=== PATIENT | male | born 1950 | race Caucasian/White ===

== ENCOUNTER → 2016-05-25 | Outpatient (CLI) | payer OTHER ==
[~2016-05-25] MED LIST: ASPI81TA28 PO; ATOR-22 PO; CARV25TA PO; GLIP-172 PO; HYDR25TA4 PO; KFL/250 PO; LOSA100T65 PO; METF750T PO
[2016-05-25 13:02] LABS: ESTIMATED AVERAGE GLUCOSE 151 mg/dl; HA1C FLAG Normal (Normal)
[2016-05-25 13:09] LABS: ALT/SGPT 35 U/L (12-78); AST/SGOT 15 U/L (15-37); BLOOD UREA NITROGEN 23 mg/dl (7-18); BUN/CREATININE RATIO 14.6 (10-20); CARBON DIOXIDE 26 mmol/L (21-32); CHLORIDE 108 mmol/L (98-107); CHOLESTEROL 158 mg/dl (0-200); GLUCOSE 148 mg/dl (70-99); POTASSIUM 4.2 mmol/L (3.5-5.1); SODIUM 142 mmol/L (136-145)
[2016-05-25 13:11] LABS: ALB/GLOB RATIO 1.2 (0.9-2); ALKALINE PHOSPHATASE 87 U/L (45-117); CHOLESTEROL/HDL RATIO 4.2; HDL CHOLESTEROL 38 mg/dl; LDL CHOLESTEROL CALCULATED 78 mg/dl; TRIGLYCERIDES 212 mg/dl (0-150); VERY LOW DENSITY LIPOPROT CALC 42 mg/dl
[2016-05-25 13:31] LABS: RATIO 7.7 mcg/mg (0-30.0)
== END | disposition home or self-care (01) ==
LOC: C.LABBFT 09:25
PROVIDERS: ATTEND Internal Medicine
DX: E11.9 Type 2 diabetes mellitus without complications (principal); E78.00 Pure hypercholesterolemia, unspecified; J34.89 Other specified disorders of nose and nasal sinuses

== ENCOUNTER → 2016-05-30 | Outpatient (CLI) | payer OTHER ==
[2016-05-30 17:44] LABS: BLOOD UREA NITROGEN 23 mg/dl (7-18); BUN/CREATININE RATIO 17.3 (10-20); CALCIUM 9.6 mg/dl (8.5-10.1); CARBON DIOXIDE 29 mmol/L (21-32); CHLORIDE 106 mmol/L (98-107); GLUCOSE 132 mg/dl (70-99); SODIUM 142 mmol/L (136-145)
== END | disposition home or self-care (01) ==
LOC: C.LABBFT 13:23
PROVIDERS: ATTEND Internal Medicine
DX: I10 Essential (primary) hypertension (principal)

== ENCOUNTER 2016-08-31 16:06 | Emergency (ER) | payer OTHER ==
[~2016-08-31] VITALS: Ht 170.2 cm; Wt 72.5 kg
[2016-08-31 16:12] VITALS: TEMP 36.6; Ht 170.2 cm; Wt 72.5 kg
[2016-08-31] MEDS ORDERED: CARV25TA PO (17:31)
[2016-08-31] MEDS ORDERED: ATOR-22 PO (17:32)
[2016-08-31] MEDS ORDERED: HYDR25TA4 PO (17:32)
[2016-08-31] MEDS ORDERED: METF750T PO (17:32)
[2016-08-31] MEDS ORDERED: GLIP-172 PO (17:32)
[2016-08-31] MEDS ORDERED: ASPI81TA28 PO (17:32)
[2016-08-31] MEDS ORDERED: LOSA100T65 PO (17:32)
[2016-08-31] MEDS ORDERED: SODIUM CHLORIDE 0.9% 1000ML 1,000 ML IV STA (17:44)
[2016-08-31] MEDS ORDERED: ONDANSETRON INJ 2 MG/ML 2 ML VIAL IV STA (17:45)
--- NOTE | 2016-08-31 17:46 | EMERGENCY ROOM VISIT NOTE ---
History Report prepared by Jacque: Ken Moncada Under the Supervision of: Dr. Claude Douglas M.D. First contact with patient: 17:37 Chief Complaint: NAUSEA Stated Complaint: NAUSEA, DIZZINESS- PHYSICIAN REFERRED Nursing Triage Summary: Pt c/o diaphoretic, nausea, lightheaded/dizziness, hands cramped at 11:00. Pt was see at PCP office. "I still don't feel good". pt reports current weakness, nausea. Denies chest pain, denies SOB. Pt reports an episode of this in the past, had stress test History of Present Illness The patient is a 66 year old male who presents to the Emergency Room with complaints of an episode of lightheadedness that occurred around 1100 this morning. He said he was working in the yard, and felt fine until he was talking to his neighbor. At that time, he started to feel nauseous and lightheaded. He was soaked in sweat, and he was having abdominal pain. The patient says that it took him a while to start feeling a bit better. However, he still feels very weak. The patient adds that he has been having cramping in his legs and fingers. Currently, he says the abdominal pain is gone. Per the patient's , these kinds of symptoms have happened before, but not to this extent. The patient had a stent placement in 2004, and he takes Aspirin. Source of History: patient, spouse/significant other Onset: 1100 this morning Position: other (global - lightheadedness) Timing: other (episode) Associated Symptoms: + diaphoresis, + nausea, + abdominal pain (but denies currently), + weakness Note: Associated symptoms: Cramping in legs and fingers. Review of Systems See HPI for pertinent positives & negatives. A total of 10 systems reviewed and were otherwise negative. Past Medical & Surgical Medical Problems: (1) HLD (hyperlipidemia) (2) HTN (hypertension) Family History No pertinent family history Social History Smoking Status: Never Smoker Marital Status: Housing Status: lives with family Occupation Status: retired Current/Historical Medications Scheduled Aspirin (Aspirin Ec), 81 MG PO DAILY Atorvastatin (Lipitor), 30 MG PO HS Carvedilol (Coreg), 25 MG PO BID Glipizide (Glipizide Xl), 2.5 MG PO QAM Hydrochlorothiazide (Hctz), 25 MG PO DAILY Losartan Potassium (Cozaar), 100 MG PO DAILY Metformin Hcl (Glucophage Er), 750 MG PO DAILY Allergies Coded Allergies: No Known Allergies (Unverified , 08/31/16) Physical Exam Vital Signs Date Time Temp Pulse Resp B/P (MAP) Pulse Ox O2 Delivery O2 Flow Rate FiO2 08/31/16 21:45 76 18 138/69 95 08/31/16 20:47 78 18 149/81 94 Room Air 08/31/16 18:47 73 18 148/80 95 08/31/16 18:01 96 Room Air 08/31/16 18:01 96 Room Air 08/31/16 17:58 64 157/83 85 170/97 84 193/105 08/31/16 17:31 65 08/31/16 16:12 36.6 71 18 169/90 96 Room Air Physical Exam GENERAL: Patient is a healthy-appearing well-nourished 66 year old male. HEAD: Normocephalic atraumatic EYES: Ocular movements intact pupils equal and react to light OROPHARYNX mucous membranes are moist no exudates present no erythema or edema present NECK: Supple no nuchal rigidity CHEST: Good equal expansion LUNGS: Clear and equal to auscultation CARDIAC: Normal S1 and S2 ABDOMEN: Soft nontender no guarding BACK: No CVA tenderness EXTREMITIES: No pain upon palpation normal muscle strength in all groups no clubbing cyanosis or edema NEURO: Patient is following commands and answering questions appropriately. Alert and oriented x3 Cranial Nerves 2-12 grossly intact Medical Decision & Procedures ER Provider Diagnostic Interpretation: X-ray results as stated below per interpretation by me and the radiologist: PA CHEST RADIOGRAPH AND LEFT LATERAL DECUBITUS AND SUPINE AP RADIOGRAPHS OF THE ABDOMEN CLINICAL HISTORY: Vasovagal episode COMPARISON STUDY: Chest radiograph January 01, [address] of the abdomen and pelvis May 06, 2015. FINDINGS: The patient is rotated. This may account for widening of the right paratracheal stripe. Cardiac size is normal. There is no evidence of pulmonary edema. There is no consolidation to suggest pneumonia. Linear bilateral opacities suggest atelectasis. There is no free air. There is no evidence for a bowel obstruction. IMPRESSION: 1. No free air or evidence of bowel obstruction. 2. No acute cardiopulmonary findings. Electronically signed by: Bernard Hudson M.D. 08/31/2016 6:42 PM Dictated Date/Time: 08/31/2016 6:41 PM Laboratory Results 08/31/16 17:10 Red Blood Count 5.05, Mean Corpuscular Volume 86.3, Mean Corpuscular Hemoglobin 30.5, Mean Corpuscular Hemoglobin Concent 35.3, Mean Platelet Volume 10.0, Neutrophils (%) (Auto) 69.3, Lymphocytes (%) (Auto) 22.5, Monocytes (%) (Auto) 5.8, Eosinophils (%) (Auto) 1.8, Basophils (%) (Auto) 0.2, Neutrophils # (Auto) 5.64, Lymphocytes # (Auto) 1.83, Monocytes # (Auto) 0.47, Eosinophils # (Auto) 0.15, Basophils # (Auto) 0.02 08/31/16 17:10 Test 08/31/16 17:10 08/31/16 17:56 08/31/16 20:15 White Blood Count 8.14 K/uL (4.8-10.8) Red Blood Count 5.05 M/uL (4.7-6.1) Hemoglobin 15.4 g/dL (14.0-18.0) Hematocrit 43.6 % (42-52) Mean Corpuscular Volume 86.3 fL (80-100) Mean Corpuscular Hemoglobin 30.5 pg (25-34) Mean Corpuscular Hemoglobin Concent 35.3 g/dl (32-36) Platelet Count 187 K/uL (130-400) Mean Platelet Volume 10.0 fL (7.4-10.4) Neutrophils (%) (Auto) 69.3 % Lymphocytes (%) (Auto) 22.5 % Monocytes (%) (Auto) 5.8 % Eosinophils (%) (Auto) 1.8 % Basophils (%) (Auto) 0.2 % Neutrophils # (Auto) 5.64 K/uL (1.4-6.5) Lymphocytes # (Auto) 1.83 K/uL (1.2-3.4) Monocytes # (Auto) 0.47 K/uL (0.11-0.59) Eosinophils # (Auto) 0.15 K/uL (0-0.5) Basophils # (Auto) 0.02 K/uL (0-0.2) RDW Standard Deviation 40.5 fL (36.4-46.3) RDW Coefficient of Variation 12.8 % (11.5-14.5) Immature Granulocyte % (Auto) 0.4 % Immature Granulocyte # (Auto) 0.03 K/uL (0.00-0.02) Urine Color YELLOW Urine Appearance CLEAR (CLEAR) Urine pH 6.0 (4.5-7.5) Urine Specific [place] 1.021 (1.000-1.030) Urine Protein NEG (NEG) Urine Glucose (UA) NEG (NEG) Urine Ketones NEG (NEG) Urine Occult Blood NEG (NEG) Urine Nitrite NEG (NEG) Urine Bilirubin NEG (NEG) Urine Urobilinogen NEG (NEG) Urine Leukocyte Esterase NEG (NEG) Anion Gap 8.0 mmol/L (3-11) Est Creatinine Clear Calc Drug Dose 50.9 ml/min Estimated GFR () 65.0 Estimated GFR (Non- 56.1 BUN/Creatinine Ratio 17.4 (10-20) Calcium Level 9.9 mg/dl (8.5-10.1) Total Bilirubin 0.7 mg/dl (0.2-1) Direct Bilirubin 0.2 mg/dl (0-0.2) Aspartate Amino Transf (AST/SGOT) 26 U/L (15-37) Alanine Aminotransferase (ALT/SGPT) 38 U/L (12-78) Alkaline Phosphatase 103 U/L (45-117) Total Protein 7.9 gm/dl (6.4-8.2) Albumin 4.4 gm/dl (3.4-5.0) Thyroid Stimulating Hormone (TSH) 0.903 uIu/ml (0.300-4.500) Bedside Glucose 109 mg/dl (70-99) Total Creatine Kinase 459 U/L (39-308) Creatine Kinase MB 4.7 ng/ml (0.5-3.6) Creatine Kinase MB Ratio 1.0 (0-3.0) Troponin I < 0.015 ng/ml (0-0.045) Labs reviewed by ED physician. Medications Administered Medications (Trade) Dose Ordered Sig/Jennifer Route Start Time Stop Time Status Last Admin Dose Admin Sodium Chloride 1,000 ml @ 999 mls/hr Q1H1M STAT IV 08/31/16 17:44 08/31/16 18:44 DC 08/31/16 17:44 999 MLS/HR Ondansetron HCl (Zofran Inj) 4 mg NOW STAT IV 08/31/16 17:45 08/31/16 17:46 DC 08/31/16 18:04 4 MG Sodium Chloride 1,000 ml @ 500 mls/hr Q2H IV 08/31/16 20:15 08/31/16 22:14 DC 08/31/16 20:15 500 MLS/HR ECG Indication: nausea Rate (beats per minute): 61 Rhythm: normal sinus Findings: no acute ischemic change, no ectopy ED Course 1737: Past medical records reviewed. The patient was evaluated in room C7. A complete history and physical examination was performed. 1743: Ordered NSS 1000 ml @ 999 mls/hr IV. 1744: Ordered Zofran Inj 4 mg IV. 1904: I reevaluated and updated the patient. The patient verbally expressed understanding and agreement of the treatment plan. The patient will be evaluated for further treatment. 2009: I discussed the patient with Dr. Sadi SALGUERO confidential secretary - he will evaluate the patient for further treatment. Medical Decision Differential diagnosis: Etiologies such as cardiac ischemia, aortic dissection, pulmonary embolism, pneumonia, pneumothorax, musculoskeletal, infections, pericarditis, myocarditis , esophageal rupture, gastrointestinal, as well as others were entertained. Medication Reconciliation: I attest that I have personally reviewed the patient' s current medication list Blood Pressure Screening: Patient was found to have normal blood pressure on screening and does not require follow up. This is a 66-year-old male who presents emergency department complaining of vasovagal episode while mowing the grass today. The patient does have a history of one cardiac stent place and notes that he feels similar to when he needed his stent. IV was established, patient given normal saline bolus. The patient was found to have elevations in CK and MB functions. Based on these findings I did discuss the case with the hospitalist service. Consults Time Called: 1949 Consulting Physician: Dr. Sadi SALGUERO confidential secretary Returned Call: 2009 I discussed the patient with Dr. Sadi SALGUERO confidential secretary - he will evaluate the patient for further treatment. Impression Primary Impression: Vasovagal episode Scribe Attestation The scribe's documentation has been prepared under my direction and personally reviewed by me in its entirety. I confirm that the note above accurately reflects all work, treatment, procedures, and medical decision making performed by me. Departure Information Dispostion Being Evaluated By Hospitalist Referrals No Doctor, Assigned (PCP) Patient Instructions My [facility]
[2016-08-31 17:49] LABS: BASO % 0.2 %; BASO ABS # 0.02 K/uL (0-0.2); COMPLETE YES; EOS % 1.8 %; HEMATOCRIT 43.6 % (42-52); IG% 0.4 %; LYMPH % 22.5 %; LYMPH ABS # 1.83 K/uL (1.2-3.4); MEAN CELL VOLUME 86.3 fL (80-100); MEAN CORPUSCULAR HEMOGLOBIN 30.5 pg (25-34); MEAN CORPUSCULAR HGB CONC 35.3 g/dl (32-36); MONO % 5.8 %; NEUT % 69.3 %; PLATELET COUNT 187 K/uL (130-400); RED BLOOD COUNT 5.05 M/uL (4.7-6.1); WHITE BLOOD COUNT 8.14 K/uL (4.8-10.8)
[2016-08-31 18:01] VITALS: O2SAT 96
[2016-08-31 18:03] LABS: ALT/SGPT 38 U/L (12-78); AST/SGOT 26 U/L (15-37); BLOOD UREA NITROGEN 23 mg/dl (7-18); BUN/CREATININE RATIO 17.4 (10-20); CALCIUM 9.9 mg/dl (8.5-10.1); CARBON DIOXIDE 26 mmol/L (21-32); CHLORIDE 105 mmol/L (98-107); GLUCOSE 118 mg/dl (70-99); POTASSIUM 4.5 mmol/L (3.5-5.1); SODIUM 139 mmol/L (136-145)
[2016-08-31 18:05] LABS: URINE APPEARANCE CLEAR (CLEAR); URINE BILIRUBIN NEG (NEG); URINE COLOR YELLOW; URINE NITRITE NEG (NEG); URINE SPECIFIC GRAVITY 1.021 (1.000-1.030); UROBILINOGEN NEG (NEG)
[2016-08-31 18:07] LABS: MANUAL MICROSCOPIC REQUIRED? NO; REVIEW REQ? NO
[2016-08-31 18:14] LABS: ALKALINE PHOSPHATASE 103 U/L (45-117); CKMB/CK RATIO 0.9 (0-3.0); THYROID STIMULATING HORMONE 0.903 uIu/ml (0.300-4.500)
--- NOTE | 2016-08-31 18:44 | DIAGNOSTIC IMAGING REPORT ---
PA CHEST RADIOGRAPH AND LEFT LATERAL DECUBITUS AND SUPINE AP RADIOGRAPHS OF THE ABDOMEN CLINICAL HISTORY: Vasovagal episode COMPARISON STUDY: Chest radiograph January 01, [address] of the abdomen and pelvis May 06, 2015. FINDINGS: The patient is rotated. This may account for widening of the right paratracheal stripe. Cardiac size is normal. There is no evidence of pulmonary edema. There is no consolidation to suggest pneumonia. Linear bilateral opacities suggest atelectasis. There is no free air. There is no evidence for a bowel obstruction. IMPRESSION: 1. No free air or evidence of bowel obstruction. 2. No acute cardiopulmonary findings. Electronically signed by: Bernard Hudson M.D. 08/31/2016 6:42 PM Dictated Date/Time: 08/31/2016 6:41 PM
[2016-08-31] MEDS ORDERED: SODIUM CHLORIDE 0.9% 1000ML 1,000 ML IV SCH (20:15)
--- NOTE | 2016-08-31 20:32 | Medical Consult ---
Consultation Date of Consultation: Aug 31, 2016. Attending Physician: Reason for Consultation: Dizziness, diaphoresis History of Present Illness 66 y/o M Hx CAD (cath/stent 2004), HTN, HPL, DM 2 - pt was working in his garden form 9-11am today. He was then talking to his neighbor when he developed acute lower abdominal pain, nausea and became light-headed and diaphoretic. He went indoors and had a bowel movement which improved his symptoms. He denies SOB or CP, denies vomiting, diarrhea or fevers. Due to exercise intolerance, the pt had a stress test 11/12 which was negative. Regarding the above symptoms, he has had such symptoms previously dating back several years and dating back to before he had a stent placed. He describes today's symptoms as more severe Past Medical/Surgical History 1) CAD - cath/stent 2004 2) HTN 3) HPL Family History No pertinent family history Denies CAD Social History Retired [employer] - does not drink Smoking Status: Never Smoker Marital Status: Housing Status: lives with family Occupation Status: retired Allergies Coded Allergies: No Known Allergies (Unverified , 08/31/16) Review of Systems Constitutional: + sweats, No fever, No chills Eyes: No worsening of vision, No eye pain ENT: No hearing loss, No unusual epistaxis, No nasal symptoms Respiratory: No cough, No sputum, No wheezing Cardiovascular: No chest pain, No orthopnea, No PND Abdomen: + pain, + nausea, No vomiting, No diarrhea Musculoskeletal: No joint pain, No muscle pain Genitourinary - Male: No hematuria, No dysuria, No urinary frequency, No urinary urgency Neurologic: + weakness, + vertigo, No memory loss, No paralysis Psychiatric: No depression symptoms, No anhedonism Endocrine: + fatigue Hematologic / Lymphatic: No abnormal bleeding/bruising, No clotting problems Integumentary: No rash Allergic / Immunologic: No environmental allergies Physical Exam Date Time Temp Pulse Resp B/P (MAP) Pulse Ox O2 Delivery O2 Flow Rate FiO2 08/31/16 18:47 73 18 148/80 95 08/31/16 18:01 96 Room Air 08/31/16 18:01 96 Room Air 08/31/16 17:58 64 157/83 85 170/97 84 193/105 08/31/16 17:31 65 08/31/16 16:12 36.6 71 18 169/90 96 Room Air General Appearance: WD/WN, no apparent distress Head: normocephalic Eyes: normal inspection, PERRL, EOMI Neck: supple, no adenopathy, thyroid normal, no JVD Respiratory/Chest: chest non-tender, lungs clear, normal breath sounds, no respiratory distress, no accessory muscle use Cardiovascular: regular rate, rhythm, no edema, no gallop, no JVD, no murmur Abdomen/GI: normal bowel sounds, non tender, soft Back: normal inspection, no CVA tenderness, no muscle spasm, normal range of motion Extremities/Musculoskelatal: normal inspection, no calf tenderness Neurologic/Psych: medical anthropologist II-XII nml as tested, no motor/sensory deficits, alert, oriented x 3 Skin: normal color, warm/dry, no rash Laboratory Results Last 24 Hours Test 08/31/16 17:10 08/31/16 17:56 08/31/16 19:56 White Blood Count 8.14 K/uL Red Blood Count 5.05 M/uL Hemoglobin 15.4 g/dL Hematocrit 43.6 % Mean Corpuscular Volume 86.3 fL Mean Corpuscular Hemoglobin 30.5 pg Mean Corpuscular Hemoglobin Concent 35.3 g/dl Platelet Count 187 K/uL Mean Platelet Volume 10.0 fL Neutrophils (%) (Auto) 69.3 % Lymphocytes (%) (Auto) 22.5 % Monocytes (%) (Auto) 5.8 % Eosinophils (%) (Auto) 1.8 % Basophils (%) (Auto) 0.2 % Neutrophils # (Auto) 5.64 K/uL Lymphocytes # (Auto) 1.83 K/uL Monocytes # (Auto) 0.47 K/uL Eosinophils # (Auto) 0.15 K/uL Basophils # (Auto) 0.02 K/uL RDW Standard Deviation 40.5 fL RDW Coefficient of Variation 12.8 % Immature Granulocyte % (Auto) 0.4 % Immature Granulocyte # (Auto) 0.03 K/uL Urine Color YELLOW Urine Appearance CLEAR Urine pH 6.0 Urine Specific [place] 1.021 Urine Protein NEG Urine Glucose (UA) NEG Urine Ketones NEG Urine Occult Blood NEG Urine Nitrite NEG Urine Bilirubin NEG Urine Urobilinogen NEG Urine Leukocyte Esterase NEG Sodium Level 139 mmol/L Potassium Level 4.5 mmol/L Chloride Level 105 mmol/L Carbon Dioxide Level 26 mmol/L Anion Gap 8.0 mmol/L Blood Urea Nitrogen 23 mg/dl Creatinine 1.30 mg/dl Est Creatinine Clear Calc Drug Dose 50.9 ml/min Estimated GFR () 65.0 Estimated GFR (Non- 56.1 BUN/Creatinine Ratio 17.4 Random Glucose 118 mg/dl Calcium Level 9.9 mg/dl Total Bilirubin 0.7 mg/dl Direct Bilirubin 0.2 mg/dl Aspartate Amino Transf (AST/SGOT) 26 U/L Alanine Aminotransferase (ALT/SGPT) 38 U/L Alkaline Phosphatase 103 U/L Total Creatine Kinase 630 U/L Creatine Kinase MB 5.8 ng/ml Creatine Kinase MB Ratio 0.9 Troponin I < 0.015 ng/ml Total Protein 7.9 gm/dl Albumin 4.4 gm/dl Thyroid Stimulating Hormone (TSH) 0.903 uIu/ml Bedside Glucose 109 mg/dl Assessment & Plan 66 y/o M Hx CAD (cath/stent 2004), HTN, HPL, DM 2 - pt was working in his garden form 9-11am today. He was then talking to his neighbor when he developed acute lower abdominal pain, nausea and became light-headed and diaphoretic. He went indoors and had a bowel movement which improved his symptoms. He denies SOB or CP, denies vomiting, diarrhea or fevers. Due to exercise intolerance, the pt had a stress test 11/12 which was negative. Regarding the above symptoms, he has had such symptoms previously dating back several years and dating back to before he had a stent placed. He describes today's symptoms as more severe. 1) Nausea, light head, diaphoresis - Labs / EKG are not consistent with cardiac etiology. We will obtain additional set of enzymes to insure Trop has remained negative and CK is trending down following IVF. 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 His symptoms have largely resolved so that we will consider D/C based on the result. 2) Elevated CK - Pt has received 2L IVF - repeat CK pending 3) HTN, HPL - cont home meds - Statin and Coreg 4) DM - hold oral meds x 1 day then resume AM after food Above discussed with pt, , ER attending and cardiology office Total time for consult 36 min
[2016-08-31 21:45] VITALS: BP 138/69; PULSE 76; O2SAT 95
[2016-11-25] MEDS ORDERED: KFL/250 PO (08:40)
== END 2016-08-31 21:45 | disposition home or self-care (01) ==
LOC: C.EDB 16:07 → C.EDC 21:45
DX: R55 Syncope and collapse (principal); I25.10 Atherosclerotic heart disease of native coronary artery without angina pectoris; E78.5 Hyperlipidemia, unspecified; I10 Essential (primary) hypertension; Z79.82 Long term (current) use of aspirin; Z79.899 Other long term (current) drug therapy

== ENCOUNTER → 2016-09-20 | Outpatient (CLI) | payer OTHER ==
[2016-09-20 12:23] LABS: BASO % 0.8 %; BASO ABS # 0.03 K/uL (0-0.2); COMPLETE YES; EOS % 3.1 %; HEMATOCRIT 38.6 % (42-52); IG% 0.3 %; LYMPH % 32.1 %; LYMPH ABS # 1.25 K/uL (1.2-3.4); MEAN CELL VOLUME 86.7 fL (80-100); MEAN CORPUSCULAR HGB CONC 35.8 g/dl (32-36); MEAN PLATELET VOLUME 10.1 fL (7.4-10.4); MONO % 9.5 %; NEUT % 54.2 %; PLATELET COUNT 163 K/uL (130-400); RED BLOOD COUNT 4.45 M/uL (4.7-6.1); WHITE BLOOD COUNT 3.89 K/uL (4.8-10.8)
[2016-09-20 12:55] LABS: ALT/SGPT 26 U/L (12-78); BLOOD UREA NITROGEN 22 mg/dl (7-18); BUN/CREATININE RATIO 16.7 (10-20); CALCIUM 9.4 mg/dl (8.5-10.1); CARBON DIOXIDE 28 mmol/L (21-32); CHLORIDE 105 mmol/L (98-107); GLUCOSE 197 mg/dl (70-99); POTASSIUM 4.3 mmol/L (3.5-5.1); SODIUM 140 mmol/L (136-145)
[2016-09-20 12:59] LABS: ALB/GLOB RATIO 1.2 (0.9-2); ALKALINE PHOSPHATASE 86 U/L (45-117); AST/SGOT 15 U/L (15-37); CKMB/CK RATIO 2.2 (0-3.0)
== END | disposition home or self-care (01) ==
LOC: C.LAB 11:21
PROVIDERS: ATTEND Nurse Practitioner
DX: R42 Dizziness and giddiness (principal); R10.30 Lower abdominal pain, unspecified

== ENCOUNTER → 2016-09-21 | Outpatient (CLI) | payer OTHER ==
[~2016-09-21] MED LIST changes: +OPTIRAY 320 IV PRN
--- NOTE | 2016-09-21 15:36 | DIAGNOSTIC IMAGING REPORT ---
ANGIO ABD/PELVIS WITH CONTRAST CLINICAL HISTORY: 09/20/16 1132 CREAK 1.30 pain. Ischemia. TECHNIQUE: Transaxial acquisition with multi axial reformatted images COMPARISON STUDY: None FINDINGS: Mild bibasilar atelectasis. Moderate atherosclerotic change of the abdominal and pelvic arterial vasculature. No evidence for aneurysm, significant stenosis, or dissection. The celiac axis, as well as superior mesenteric arteries appear unremarkable. There is no significant stenotic process. Bowel pattern is uniform and nonobstructive. There is no significant bowel wall edema. There is no significant stenotic change of the renal arteries. Kidneys negative for hydronephrosis. There is a 2 mm calcification posterior aspect of the bladder wall the right. Correlation clinically to exclude a recently passed calculus is recommended. There is small left renal cyst. The kidneys enhance uniformly. The arterial structures of mesentery appear unremarkable. There is no evidence for significant arterial occlusive change. IMPRESSION: 1. Moderate atherosclerotic change of all major arterial structures the abdomen and pelvis. 2. No evidence for a significant stenotic process, aneurysm, or dissection. 3. 2 mm calcification posterior bladder on the right raise the possibility of a recently passed calculus versus simple bladder calcification. 4. Nonobstructive bowel pattern 5. Slight nonspecific enhancement of the small bowel wall raise the possibility of a nonspecific enteritis The above report was generated using voice recognition software. It may contain grammatical, syntax or spelling errors. Electronically signed by: Dereck Teran M.D. 09/21/2016 3:35 PM Dictated Date/Time: 09/21/2016 3:29 PM
== END | disposition home or self-care (01) ==
LOC: C.CTS 15:05
PROVIDERS: ATTEND Nurse Practitioner
DX: R42 Dizziness and giddiness (principal); G47.00 Insomnia, unspecified; R61 Generalized hyperhidrosis; R11.0 Nausea; R10.30 Lower abdominal pain, unspecified

== ENCOUNTER → 2016-09-22 | Outpatient (CLI) | payer OTHER ==
[~2016-09-22] MED LIST changes: -OPTIRAY 320 IV PRN
[2016-09-30 15:26] LABS: O&P SOURCE OTHER-STOOL
== END | disposition home or self-care (01) ==
LOC: C.LABSPEC 11:57
PROVIDERS: ATTEND Nurse Practitioner
DX: R10.30 Lower abdominal pain, unspecified (principal)

== ENCOUNTER → 2016-10-07 | Outpatient (CLI) | payer OTHER ==
[2016-10-07 12:31] LABS: HEMATOCRIT 41.7 % (42-52); MEAN CELL VOLUME 88.2 fL (80-100); MEAN CORPUSCULAR HEMOGLOBIN 30.2 pg (25-34); MEAN CORPUSCULAR HGB CONC 34.3 g/dl (32-36); MEAN PLATELET VOLUME 10.5 fL (7.4-10.4); PLATELET COUNT 164 K/uL (130-400); RED BLOOD COUNT 4.73 M/uL (4.7-6.1)
[2016-10-07 12:45] LABS: ESTIMATED AVERAGE GLUCOSE 151 mg/dl; HA1C FLAG Normal (Normal)
[2016-10-07 12:47] LABS: ALT/SGPT 34 U/L (12-78); AST/SGOT 15 U/L (15-37); BLOOD UREA NITROGEN 17 mg/dl (7-18); BUN/CREATININE RATIO 14.5 (10-20); CALCIUM 9.2 mg/dl (8.5-10.1); CARBON DIOXIDE 24 mmol/L (21-32); CHLORIDE 106 mmol/L (98-107); GLUCOSE 222 mg/dl (70-99); POTASSIUM 4.6 mmol/L (3.5-5.1); SODIUM 136 mmol/L (136-145)
[2016-10-07 12:55] LABS: ALB/GLOB RATIO 1.1 (0.9-2); ALKALINE PHOSPHATASE 90 U/L (45-117); CHOLESTEROL 151 mg/dl (0-200); CHOLESTEROL/HDL RATIO 4.2; HDL CHOLESTEROL 36 mg/dl; LDL CHOLESTEROL CALCULATED 58 mg/dl; TRIGLYCERIDES 286 mg/dl (0-150); VERY LOW DENSITY LIPOPROT CALC 57 mg/dl
== END | disposition home or self-care (01) ==
LOC: C.LABBFT 11:04
PROVIDERS: ATTEND Internal Medicine
DX: E78.00 Pure hypercholesterolemia, unspecified (principal); E11.9 Type 2 diabetes mellitus without complications; Z12.5 Encounter for screening for malignant neoplasm of prostate

== ENCOUNTER → 2016-11-10 | Outpatient (CLI) | payer OTHER ==
--- NOTE | 2016-11-10 13:11 | DIAGNOSTIC IMAGING REPORT ---
KUB CLINICAL HISTORY: 66 years-old Male presenting with nephrolithiasis, left-sided kidney stone. TECHNIQUE: Single supine view of the abdomen was obtained. COMPARISON: 08/31/[address] from 09/21/2016. FINDINGS: Bilateral nephrolithiasis noted. Bone island noted in the midline sacrum and left ilium. No calcifications along the course of the ureters. Moderate stool burden of the degrades evaluation. Degenerative changes noted in the lower lumbar spine. Lung bases clear. IMPRESSION: 1. Bilateral nephrolithiasis in a dissimilar distribution as on most recent CT from 09/21/2016. Electronically signed by: Carlos Araujo M.D. 11/10/2016 1:10 PM Dictated Date/Time: 11/10/2016 1:07 PM
== END | disposition home or self-care (01) ==
LOC: C.RAD 12:24
PROVIDERS: ATTEND Urology
DX: N20.0 Calculus of kidney (principal); N20.1 Calculus of ureter

== ENCOUNTER → 2016-11-24 | Outpatient (CLI) | payer OTHER ==
[2016-11-24 19:42] LABS: LYME DISEASE AB IGG NEG (NEG); LYME DISEASE AB IGM NEG (NEG)
== END | disposition home or self-care (01) ==
LOC: C.LABBFT 12:51
PROVIDERS: ATTEND Physician Assistant Medical
DX: L03.90 Cellulitis, unspecified (principal)

== ENCOUNTER → 2016-11-25 | Day surgery (SDC) | payer OTHER ==
[2016-11-09 10:52] VITALS: BMI 25.0
[~2016-11-25] VITALS: Ht 170.2 cm; Wt 72.7 kg
[~2016-11-25] MED LIST changes: +LIDOCAINE HCL 2% 2 ML VIAL (20MG/ML) ONE; +PROPOFOL IV EMULSION 10 MG/ML 20 ML VIAL IV ONE
[2016-11-25 08:41] VITALS: Ht 170.2 cm; Wt 72.7 kg
--- NOTE | 2016-11-25 09:03 | Endo History and Physical ---
History & Physical Date of Service: Nov 25, 2016. Chief Complaint: ABNORMAL CT SCAN, LOOSE STOOLS, LOWER ABDOMINAL PAIN Referring Physician: DR BURKETT History of Present Illness 66 yo CM who presents for colonoscopy secondary to abnormal CT scan, loose stools and lower abdominal pain. Past Surgical History Hx Cardiac Surgery: Yes (HEART CATH-1 STENT) Hx Internal Defibrillator: No Hx Pacemaker: No Hx Abdominal Surgery: No Hx of Implantable Prosthesis: No Hx Post-Op Nausea and Vomiting: No Hx Cancer Surgery: No Hx Thoracic Surgery: No Hx Orthopedic: No Hx Urinary Tract Surgery: No Family History None Social History Smoking Status: Never Smoker Hx Substance Use: No Hx Alcohol Use: Yes (RARELY) Allergies Coded Allergies: NO KNOWN DRUG ALLERGIES (Verified Allergy, Unknown, ., 11/09/16) Current Medications Reported Home Medications Medications Dose Route/Sig Max Daily Dose Days Date Category Keflex (Cephalexin Monohydrate) 250 Mg Cap 250 Mg PO QID 11/25/16 Reported Glucophage Er (Metformin Hcl) 750 Mg Tab 750 Mg PO HS 08/31/16 Reported Glipizide Xl (Glipizide) 2.5 Mg Tab 2.5 Mg PO QAM 08/31/16 Reported Cozaar (Losartan Potassium) 100 Mg Tab 100 Mg PO QAM 08/31/16 Reported Hctz (Hydrochlorothiazide) 25 Mg Tab 25 Mg PO 2XWK 08/31/16 Reported Lipitor (Atorvastatin Calcium) 20 Mg Tab 30 Mg PO HS 08/31/16 Reported Aspirin Ec (Aspirin) 81 Mg Tab 81 Mg PO HS 08/31/16 Reported Coreg (Carvedilol) 25 Mg Tab 25 Mg PO BID 08/31/16 Reported Vital Signs Weight (Kilograms): 72.73 Height (Feet): 5 Height (Inches): 7 Date Time Temp Pulse Resp B/P (MAP) Pulse Ox O2 Delivery O2 Flow Rate FiO2 11/25/16 08:40 36.5 64 18 202/94 (130) 97 Room Air Physical Exam General Appearance: WD/WN, no apparent distress Respiratory/Chest: Auscultation: breath sounds normal Cardiovascular: Heart Auscultation: RRR Abdomen: Bowel Sounds: normal Inspection & Palpation: soft, non-distended, no tenderness, guarding & rebound Assessment and Plan Assessment: 66 yo CM who presents for colonoscopy secondary to abnormal CT scan, loose stools and lower abdominal pain. Plan: Proceed with colonoscopy.
--- NOTE | 2016-11-25 09:36 | Discharge Instructions ---
Endoscopy Patient Instructions Date / Procedure(s) Performed Nov 25, 2016. Colonoscopy Allergy Information Coded Allergies: NO KNOWN DRUG ALLERGIES (Verified Allergy, Unknown, ., 11/09/16) Discharge Date / Findings Nov 25, 2016. Colon polyps Internal hemorrhoids Medication Instructions Stopped Medication(s): ASPIRIN LAST DOSE 11/23/16 METFORMIN LAST DOSE 11/23/16 OK to resume all medications today as prescribed Reported Home Medications Medications Dose Route/Sig Max Daily Dose Days Date Category Keflex (Cephalexin Monohydrate) 250 Mg Cap 250 Mg PO QID 11/25/16 Reported Glucophage Er (Metformin Hcl) 750 Mg Tab 750 Mg PO HS 08/31/16 Reported Glipizide Xl (Glipizide) 2.5 Mg Tab 2.5 Mg PO QAM 08/31/16 Reported Cozaar (Losartan Potassium) 100 Mg Tab 100 Mg PO QAM 08/31/16 Reported Hctz (Hydrochlorothiazide) 25 Mg Tab 25 Mg PO 2XWK 08/31/16 Reported Lipitor (Atorvastatin Calcium) 20 Mg Tab 30 Mg PO HS 08/31/16 Reported Aspirin Ec (Aspirin) 81 Mg Tab 81 Mg PO HS 08/31/16 Reported Coreg (Carvedilol) 25 Mg Tab 25 Mg PO BID 08/31/16 Reported Provider Instructions Activity Restrictions - No exercising or heavy lifting for 24 hours. - Do not drink alcohol the day of the procedure. - Do not drive a car or operate machinery until the day after the procedure. - Do not make any important decisions or sign important papers in 24 hours after the procedure. Following Day: - Return to full activity which may include returning to work/school. Diet Start your diet with liquids and light foods (jello, soup, juice, toast). Then eat your usual diet if not nauseated. Treatment For Common After Affects For mild abdominal pain, bloating, or excessive gas: - Rest - Eat lightly - Lie on right side Follow-Up Information Follow-up with DR BURKETT as scheduled Anesthesia Information What You Should Know You have had a procedure that required some medicine to reduce anxiety and discomfort. This treatment is called moderate sedation. After receiving the treatment, you may be sleepy, but you will be able to breathe on your own. The effects of the treatment may last for several hours. Follow these instructions along with Activity/Diet recommendations noted above: * Do NOT do anything where dizziness or clumsiness would be dangerous. * Rest quietly at home today, then you can be up and about tomorrow. * Have a responsible person stay with you the rest of today. * You may have had an I.V. today. If so, you may take the dressing off later today. Recommendations Call your doctor if: * Trouble breathing * Continuous vomiting for more than 24 hours * Temperature above 101 degrees * Severe abdominal pain or bloating * Pain not relieved by pain medicine ordered * There is increased drainage or redness from any incision * A large amount of rectal bleeding greater than 2-3 tablespoons. (If you had a polyp/s removed or have hemorrhoids, a small amount of blood - from the rectum is to be expected.) * You have any unanswered questions or concerns. IN THE EVENT OF A SERIOUS EMERGENCY, GO TO THE NEAREST EMERGENCY ROOM Your discharge instructions were prepared by provider Ford Stevens. Patient Instructions Signature Page Drake Kennedy Patient (or Guardian) Signature/Date: I have read and understand the instructions given to me by my caregivers. Caregiver/RN/Doctor Signature/Date: The above-named patient and/or guardian has received patient instructions on this date. + Original Patient Signature Page (only) stays with chart. Please make copy for patient.
--- NOTE | 2016-11-25 09:49 | GI REPORT ---
Procedure Date: 11/25/2016 8:45 AM Procedure: Colonoscopy Indications: Chronic diarrhea, Abnormal CT of the GI tract Medicines: Monitored Anesthesia Care Complications: No immediate complications. Estimated Blood Loss: Estimated blood loss: none. Procedure: Pre-Anesthesia Assessment: - Prior to the procedure, a History and Physical was performed, and patient medications and allergies were reviewed. The patient's tolerance of previous anesthesia was also reviewed. The risks and benefits of the procedure and the sedation options and risks were discussed with the patient. All questions were answered, and informed consent was obtained. Prior Anticoagulants: The patient has taken aspirin, last dose was 2 days prior to procedure. ASA Grade Assessment: II - A patient with mild systemic disease. After reviewing the risks and benefits, the patient was deemed in satisfactory condition to undergo the procedure. After I obtained informed consent, the scope was passed under direct vision. Throughout the procedure, the patient's blood pressure, pulse, and oxygen saturations were monitored continuously. The scope was introduced through the anus and advanced to the terminal ileum. The colonoscopy was performed without difficulty. The patient tolerated the procedure well. The quality of the bowel preparation was good. The terminal ileum, ileocecal valve, appendiceal orifice, and rectum were photographed. Findings: A 4 mm polyp was found in the ascending colon. The polyp was sessile. The polyp was removed with a cold biopsy forceps. Resection and retrieval were complete. A 5 mm polyp was found in the descending colon. The polyp was sessile. The polyp was removed with a hot snare. Resection and retrieval were complete. Non-bleeding internal hemorrhoids were found during retroflexion. The hemorrhoids were small. Impression: - One 4 mm polyp in the ascending colon, removed with a cold biopsy forceps. Resected and retrieved. - One 5 mm polyp in the descending colon, removed with a hot snare. Resected and retrieved. - Non-bleeding internal hemorrhoids. Recommendation: - Resume previous diet. - Continue present medications. - Repeat colonoscopy for surveillance based on pathology results. - Return to primary care physician as previously scheduled. Ford Stevens DO 11/25/2016 9:48:47 AM This report has been signed electronically. Note Initiated On: 11/25/2016 8:45 AM I attest to the content of the Intraoperative Record and orders documented therein, exceptions below
[2016-11-25 10:08] VITALS: BP 153/78; PULSE 64; O2SAT 95
--- NOTE | 2016-11-25 10:34 | Anesthesiology Progress Note ---
Anesthesia Post Op Note Date & Time Nov 25, 2016 at 10:34 Vital Signs Pain Intensity: 0 Vital Signs Past 12 Hours Date Time Temp Pulse Resp B/P (MAP) Pulse Ox O2 Delivery O2 Flow Rate FiO2 11/25/16 10:08 64 18 153/78 (103) 95 Room Air 11/25/16 09:51 64 18 150/79 (102) 95 Room Air 11/25/16 09:36 64 18 112/58 (76) 98 Room Air 11/25/16 08:50 189/95 (126) 11/25/16 08:40 36.5 64 18 202/94 (130) 97 Room Air Notes Mental Status: alert / awake / arousable, participated in evaluation Pt Amnestic to Procedure: Yes Nausea / Vomiting: adequately controlled Pain: adequately controlled Airway Patency, RR, SpO2: stable & adequate BP & HR: stable & adequate Hydration State: stable & adequate Anesthetic Complications: no major complications apparent
== END | disposition home or self-care (01) ==
LOC: C.GI 08:20
PROVIDERS: ATTEND Internal Medicine
DX: D12.2 Benign neoplasm of ascending colon (principal); D12.4 Benign neoplasm of descending colon; K64.8 Other hemorrhoids; Z79.82 Long term (current) use of aspirin; Z79.84 Long term (current) use of oral hypoglycemic drugs; Z79.899 Other long term (current) drug therapy

== ENCOUNTER → 2016-12-13 | Outpatient (CLI) | payer OTHER ==
[~2016-12-13] MED LIST changes: -LIDOCAINE HCL 2% 2 ML VIAL (20MG/ML) ONE; -PROPOFOL IV EMULSION 10 MG/ML 20 ML VIAL IV ONE
--- NOTE | 2016-12-13 11:50 | DIAGNOSTIC IMAGING REPORT ---
AP PELVIS AND LEFT HIP 3 VIEWS CLINICAL HISTORY: Left hip and pelvic pain COMPARISON STUDY: No previous studies for comparison. FINDINGS: No acute fractures are visualized. There are no erosive or destructive changes. There are mild osteoarthritic changes involving the left hip. There are a few scattered sclerotic densities within the pelvis statistically representing bone islands. IMPRESSION: Moderate osteoarthritic change. No fractures identified. Electronically signed by: Abraham Solano M.D. 12/13/2016 11:49 AM Dictated Date/Time: 12/13/2016 11:48 AM
--- NOTE | 2016-12-13 11:51 | DIAGNOSTIC IMAGING REPORT ---
SI JOINTS 3 OR MORE VIEWS CLINICAL HISTORY: M54.32 Sciatica of left, left-sided pelvic pain. COMPARISON STUDY: No previous studies for comparison. FINDINGS: There are moderately advanced degenerative changes within the spine and lumbosacral junction. There is no SI joint diastases. There is no SI joint fusion. There are no erosive changes. IMPRESSION: No conventional radiographic evidence of an inflammatory sacroiliitis Electronically signed by: Abraham Solano M.D. 12/13/2016 11:50 AM Dictated Date/Time: 12/13/2016 11:49 AM
== END | disposition home or self-care (01) ==
LOC: C.RAD 11:06
PROVIDERS: ATTEND Nurse Practitioner
DX: M54.32 Sciatica, left side (principal); M16.12 Unilateral primary osteoarthritis, left hip

== ENCOUNTER → 2017-03-23 | Outpatient (CLI) | payer OTHER ==
[2017-03-23 12:43] LABS: BASO % 0.6 %; BASO ABS # 0.03 K/uL (0-0.2); EOS % 4.4 %; EOS ABS # 0.21 K/uL (0-0.5); HEMATOCRIT 40.7 % (42-52); HEMOGLOBIN 14.2 g/dL (14.0-18.0); IG# 0.01 K/uL (0.00-0.02); LYMPH ABS # 1.83 K/uL (1.2-3.4); MEAN CELL VOLUME 89.5 fL (80-100); MEAN CORPUSCULAR HEMOGLOBIN 31.2 pg (25-34); MEAN CORPUSCULAR HGB CONC 34.9 g/dl (32-36); MEAN PLATELET VOLUME 10.9 fL (7.4-10.4); MONO % 11.4 %; MONO ABS # 0.55 K/uL (0.11-0.59); NEUT % 45.4 %; NEUT ABS # 2.19 K/uL (1.4-6.5); PLATELET COUNT 153 K/uL (130-400); RED CELL DISTRIBUTION WIDTH CV 13.2 % (11.5-14.5); RED CELL DISTRIBUTION WIDTH SD 42.9 fL (36.4-46.3); WHITE BLOOD COUNT 4.82 K/uL (4.8-10.8)
[2017-03-23 13:03] LABS: ALBUMIN 3.8 gm/dl (3.4-5.0); ALT/SGPT 26 U/L (12-78); BLOOD UREA NITROGEN 20 mg/dl (7-18); CALCIUM 9.3 mg/dl (8.5-10.1); CARBON DIOXIDE 28 mmol/L (21-32); CHOLESTEROL 147 mg/dl (0-200); CREATININE 1.24 mg/dl (0.60-1.40); GLUCOSE 137 mg/dl (70-99); POTASSIUM 4.4 mmol/L (3.5-5.1); SODIUM 139 mmol/L (136-145)
[2017-03-23 13:07] LABS: HEMOGLOBIN A1C 6.9 % (4.5-5.6)
[2017-03-23 13:14] LABS: ALKALINE PHOSPHATASE 95 U/L (45-117); AST/SGOT 14 U/L (15-37); LDL CHOLESTEROL CALCULATED 71 mg/dl
== END | disposition home or self-care (01) ==
LOC: C.LABBFT 08:53
PROVIDERS: ATTEND Internal Medicine
DX: I35.1 Nonrheumatic aortic (valve) insufficiency (principal); E11.9 Type 2 diabetes mellitus without complications

== ENCOUNTER 2018-10-13 22:03 | Observation (INO) ==
[2018-10-13] MEDS ORDERED: HydrALAZINE HCL 20 MG/ML VIAL IV STA (23:04)
[2018-10-13 23:19] LABS: Basophils # (auto) 0.02 K/uL (0-0.2); Basophils % (auto) 0.3 %; Eosinophils # (auto) 0.33 K/uL (0-0.5); Eosinophils % (auto) 4.6 %; Hematocrit (blood only) 41.5 % (42-52); Hemoglobin 14.7 g/dL (14.0-18.0); Immature Granulocytes # (auto) 0.01 K/uL (0.00-0.02); Immature Granulocytes % (auto) 0.1 %; Lymphocytes # (auto) 2.76 K/uL (1.2-3.4); Lymphocytes % (auto) 38.9 %; Mean Corpuscular Hgb Conc 35.4 g/dL (32-36); Mean Corpuscular Volume 86.3 fL (80-100); Mean Platelet Volume 10.7 fL (7.4-10.4); Monocytes # (auto) 0.79 K/uL (0.11-0.59); Monocytes % (auto) 11.1 %; Neutrophils # (auto) 3.19 K/uL (1.4-6.5); Platelet Count 170 K/uL (130-400); RDW Coefficient of Variation 12.7 % (11.5-14.5); RDW Standard Deviation 39.9 fL (36.4-46.3); Red Blood Count 4.81 M/uL (4.7-6.1)
[2018-10-13 23:29] LABS: BUN Creatinine Ratio 11.8 (10-20); Calcium 8.8 mg/dl (8.5-10.1); Creatinine Clr Calc Pharmacy 40.7 ml/min; Est GFR (African American) 50.6; Est GFR (Non-African American) 43.7; Magnesium 2.2 mg/dl (1.8-2.4); Potassium 4.3 mmol/L (3.5-5.1)
[2018-10-13 23:39] LABS: Albumin Globulin Ratio 1.2 (0.9-2); Bilirubin,Total 0.4 mg/dl (0.2-1); Globulin 3.4 gm/dl (2.5-4.0); Total Protein 7.4 gm/dl (6.4-8.2)
--- NOTE | 2018-10-13 23:56 | Emergency Department Note ---
History of Present Illness General Chief complaint: Arrhythmia/Palpitations Stated complaint: PALPITATIONS, PAIN AROUND THROAT History of Present Illness Maximum Pain Intensity: 0 This 68-year-old presents to the ER complaining of headache, neck discomfort, chest/epigastric discomfort and high blood pressure with palpitations Location: Generalized Quality: Discomfort Severity: Moderate Duration: Today Timing: Today Context: Patient was concerned and came in Modifying factors: better with nothing; worse with nothing Patient checked his pulse and noticed it was skipping every 15 to 30 seconds. He had a stent placed 13 years ago. He had a cardiac cath last year and states he had some plaque buildup. Patient denies exertional chest pain, dyspnea, abdominal pain, fever, chills, flulike illness, localized weakness. He did notice his blood pressure was high. He has been taking his medications as prescribed. Blood sugar this morning is 120. No history of abnormal heart rhythm. No history of a Holter monitor. Home Medications Home Medications Medication Instructions Recorded Confirmed Type aspirin 81 mg PO QPM 12/28/17 10/13/18 History carvedilol 25 mg PO BID 12/28/17 10/13/18 History hydrochlorothiazide 25 mg PO QAM 12/28/17 10/13/18 History metformin 750 mg PO PM 12/28/17 10/13/18 History atorvastatin 20 mg tablet 30 mg PO DAILY tab 09/03/18 10/13/18 History ranitidine 150 mg capsule 150 mg PO BID #60 cap 09/03/18 10/13/18 Rx losartan 100 mg tablet 100 mg PO DAILY #90 tab 10/09/18 10/13/18 Rx aspirin, buffered 325 mg PO .TODAY 10/13/18 10/13/18 History glipizide 10 mg PO QAM 10/13/18 10/13/18 History Allergies Allergy/AdvReac Type Severity Reaction Status Date / Time No Known Drug Allergies Allergy Unknown . Verified 03/12/18 06:34 No Known Drug Allergies Allergy Uncoded 08/13/18 10:41 Past Med/Surg History Medical History Tubular adenoma of colon (Acute) Rhabdomyolysis (Acute) Paresthesias/numbness (Acute) Pain in joint, hand (Acute) Nephrolithiasis (Acute) Male erectile disorder of organic origin (Acute) Insomnia (Acute) Hyperplastic colon polyp (Acute) Hypercholesterolemia (Chronic) Diabetes mellitus type 2, uncontrolled (Acute) Cervical radiculopathy (Acute) Cataract (Acute) CAD in habematolel artery (Chronic) Arthritis of lumbar spine (Acute) Aortic regurgitation (Acute) Anxiety (Acute) Actinic keratosis (Acute) HLD (hyperlipidemia) (Chronic) HTN (hypertension) (Chronic) Degenerative disc disease CERVICAL SPINE Diabetes mellitus, type 2 Osteoarthritis Surgical History History of cardiac cath X2 3-4 WEEKS AGO - [facility] - ACTIVITY INTOLERANCE - NO STENTS/ANGIOPLASTY - FOLLOWS BOUCHRA AROUND 2003 - [facility] - CP - 1 STENT History of cataract surgery LEFT 01/22/2018. 4mg versed. no issues. History of colonoscopy History of esophagogastroduodenoscopy (EGD) History of heart artery stent X1--13 YEARS AGO. DRUG ELUTING STENT History of tonsillectomy Family History Father Family history of diabetes mellitus Social History Preferred Language: Sinhala Communication Ability: Effective Waiter/Waitress Required: No Beliefs That Will Affect Care: None Current Living Situation: Spouse Feels Safe at Home: Yes Smoking Status: Never smoker Second Hand Exposure: No ; Hx Alcohol Use: No Hx Substance Use: No Review of Systems All systems reviewed & are unremarkable except as noted in HPI & below Physical Exam Vital Signs Vital Signs - 24 hr 10/13/18 22:09 10/13/18 22:18 10/13/18 22:23 Temperature 37.0 C Temperature Source Oral Sepsis Recent Fever Within 48 Hours No Sepsis New/Unexplained Change in Mental Status No Sepsis Action Taken by Nursing No Action Required Pulse Rate 71 95 H 90 Pulse Rate from SpO2 Sensor Respiratory Rate 16 15 19 Respiratory Effort / Characteristics Non-Labored Spontaneous Respiratory Depth Normal Blood Pressure 212/91 H 205/110 H Blood Pressure Mean 131 141 Pulse Oximetry 97 Oxygen Delivery Method Room Air 10/13/18 22:27 10/13/18 22:30 10/13/18 22:32 Temperature Temperature Source Sepsis Recent Fever Within 48 Hours Sepsis New/Unexplained Change in Mental Status Sepsis Action Taken by Nursing Pulse Rate 85 97 H Pulse Rate from SpO2 Sensor 85 95 H Respiratory Rate 17 16 Respiratory Effort / Characteristics Respiratory Depth Blood Pressure 176/126 H Blood Pressure Mean 142 Pulse Oximetry 95 96 96 Oxygen Delivery Method Room Air 10/13/18 22:58 10/13/18 23:00 10/13/18 23:10 Temperature Temperature Source Sepsis Recent Fever Within 48 Hours Sepsis New/Unexplained Change in Mental Status Sepsis Action Taken by Nursing Pulse Rate 90 87 Pulse Rate from SpO2 Sensor 88 84 Respiratory Rate 21 16 Respiratory Effort / Characteristics Respiratory Depth Blood Pressure 176/104 H 182/97 H Blood Pressure Mean 128 125 Pulse Oximetry 95 96 95 Oxygen Delivery Method Room Air 10/13/18 23:37 10/13/18 23:38 10/13/18 23:39 Temperature Temperature Source Sepsis Recent Fever Within 48 Hours Sepsis New/Unexplained Change in Mental Status Sepsis Action Taken by Nursing Pulse Rate 86 86 83 Pulse Rate from SpO2 Sensor 87 81 Respiratory Rate 17 17 16 Respiratory Effort / Characteristics Respiratory Depth Blood Pressure 166/97 H Blood Pressure Mean 120 Pulse Oximetry 94 94 Oxygen Delivery Method 10/14/18 00:00 10/14/18 00:32 10/14/18 01:00 Temperature Temperature Source Sepsis Recent Fever Within 48 Hours Sepsis New/Unexplained Change in Mental Status Sepsis Action Taken by Nursing Pulse Rate 81 86 86 Pulse Rate from SpO2 Sensor 81 88 85 Respiratory Rate 20 16 16 Respiratory Effort / Characteristics Respiratory Depth Blood Pressure 160/88 H 180/94 H 162/101 H Blood Pressure Mean 112 122 121 Pulse Oximetry 94 94 95 Oxygen Delivery Method 10/14/18 02:06 10/14/18 02:08 10/14/18 02:30 Temperature Temperature Source Sepsis Recent Fever Within 48 Hours Sepsis New/Unexplained Change in Mental Status Sepsis Action Taken by Nursing Pulse Rate 91 H 84 83 Pulse Rate from SpO2 Sensor 87 83 83 Respiratory Rate 16 22 16 Respiratory Effort / Characteristics Respiratory Depth Blood Pressure 159/105 H 154/93 H Blood Pressure Mean 123 113 Pulse Oximetry 95 96 95 Oxygen Delivery Method VITALS: Vitals are noted on the nurse's note and reviewed by myself. Vital signs hypertensive. GENERAL: Pleasant male, in no acute distress, nondiaphoretic, well-developed well-nourished. SKIN: The skin was without rashes, erythema, edema, or bruising. There is no tenting of the skin. Capillary reflex less than 2 seconds. HEAD: Normocephalic atraumatic. EARS: External auditory canals clear, tympanic membranes pearly damon without erythema or effusion bilaterally. EYES: Pupils equal round and reactive to light and accommodation. Conjunctivae without injection, sclerae without icterus. Extraocular movements intact. NOSE: Patent, turbinates without inflammation or discharge. MOUTH: Mucous membranes moist. Pharynx without erythema or exudate. Uvula midline. Airway patent. Tongue does not deviate. NECK: Supple without nuchal rigidity. No lymphadenopathy. No thyromegaly. Cervical spine is nontender. No JVD. HEART: Regular rate and rhythm LUNGS: Clear to auscultation bilaterally without wheezes, rales or rhonchi. No retractions or accessory muscle use. ABDOMEN: Positive bowel sounds x 4. Normal tympanic percussion. Soft, nontender, without masses or organomegaly. Crandall sign negative. No guarding or rebound tenderness. No CVA tenderness MUSCULOSKELETAL: No muscle atrophy, erythema, or edema noted. NEURO: Patient was alert and oriented to person place and time. Normal sensation to light and sharp touch. No focal neurological deficits. Cranial nerves II through XII grossly intact. No prior drift. Cerebellar exam intact. Course Administered Medications Discontinued Medications Hydralazine HCl (Hydralazine Hcl) 10 mg IV NOW STA Stop: 10/13/18 23:05 Last Admin: 10/14/18 00:10 Dose: Not Given Documented by: [id number] Medical Decision Making Medical Records Attestation: I reviewed the patient's medical records. Home Medications Current Medication List: was personally reviewed by me Laboratory Data Attestation: I reviewed the patient's lab results. Result diagrams: 10/13/18 22:25 10/13/18 22:25 Lab Results 10/13/18 10/13/18 10/13/18 Range/Units 22:25 22:25 22:25 WBC 7.10 (4.8-10.8) K/uL RBC 4.81 (4.7-6.1) M/uL Hgb 14.7 (14.0-18.0) g/dL Hct 41.5 L (42-52) % MCV 86.3 (80-100) fL MCH 30.6 (25-34) pg MCHC 35.4 (32-36) g/dL RDW Std Deviation 39.9 (36.4-46.3) fL RDW Coeff of Dorita 12.7 (11.5-14.5) % Plt Count 170 (130-400) K/uL MPV 10.7 H (7.4-10.4) fL Immature Gran % (Auto) 0.1 % Neut % (Auto) 45.0 % Lymph % (Auto) 38.9 % [place] % (Auto) 11.1 % Eos % (Auto) 4.6 % Baso % (Auto) 0.3 % Immature Gran # (Auto) 0.01 (0.00-0.02) K/uL Neut # (Auto) 3.19 (1.4-6.5) K/uL Lymph # (Auto) 2.76 (1.2-3.4) K/uL [place] # (Auto) 0.79 H (0.11-0.59) K/uL Eos # (Auto) 0.33 (0-0.5) K/uL Baso # (Auto) 0.02 (0-0.2) K/uL Sodium 139 (136-145) mmol/L Potassium 4.3 (3.5-5.1) mmol/L Chloride 104 (98-107) mmol/L Carbon Dioxide 28 (21-32) mmol/L Anion Gap 8.0 (3-11) BUN 19 H (7-18) mg/dl Creatinine 1.58 H (0.6-1.4) mg/dl Est Cr Clr Drug Dosing 40.7 ml/min Est GFR ( Amer) 50.6 Est GFR (Non-Af Amer) 43.7 BUN/Creatinine Ratio 11.8 (10-20) Glucose 164 H (70-99) mg/dl Calcium 8.8 (8.5-10.1) mg/dl Magnesium 2.2 (1.8-2.4) mg/dl Total Bilirubin 0.4 (0.2-1) mg/dl AST 24 (15-37) U/L ALT 49 (12-78) U/L Alkaline Phosphatase 109 (45-117) U/L Total Creatine Kinase 89 (39-308) U/L POC Troponin I (0-0.045) ng/ml Troponin I < 0.015 (0-0.045) ng/ml Total Protein 7.4 (6.4-8.2) gm/dl Albumin 4.0 (3.4-5.0) gm/dl Globulin 3.4 (2.5-4.0) gm/dl Albumin/Globulin Ratio 1.2 (0.9-2) TSH 2.220 (0.300-4.500) uIu/ml 10/13/18 Range/Units 23:24 WBC (4.8-10.8) K/uL RBC (4.7-6.1) M/uL Hgb (14.0-18.0) g/dL Hct (42-52) % MCV (80-100) fL MCH (25-34) pg MCHC (32-36) g/dL RDW Std Deviation (36.4-46.3) fL RDW Coeff of Dorita (11.5-14.5) % Plt Count (130-400) K/uL MPV (7.4-10.4) fL Immature Gran % (Auto) % Neut % (Auto) % Lymph % (Auto) % [place] % (Auto) % Eos % (Auto) % Baso % (Auto) % Immature Gran # (Auto) (0.00-0.02) K/uL Neut # (Auto) (1.4-6.5) K/uL Lymph # (Auto) (1.2-3.4) K/uL [place] # (Auto) (0.11-0.59) K/uL Eos # (Auto) (0-0.5) K/uL Baso # (Auto) (0-0.2) K/uL Sodium (136-145) mmol/L Potassium (3.5-5.1) mmol/L Chloride (98-107) mmol/L Carbon Dioxide (21-32) mmol/L Anion Gap (3-11) BUN (7-18) mg/dl Creatinine (0.6-1.4) mg/dl Est Cr Clr Drug Dosing ml/min Est GFR ( Amer) Est GFR (Non-Af Amer) BUN/Creatinine Ratio (10-20) Glucose (70-99) mg/dl Calcium (8.5-10.1) mg/dl Magnesium (1.8-2.4) mg/dl Total Bilirubin (0.2-1) mg/dl AST (15-37) U/L ALT (12-78) U/L Alkaline Phosphatase (45-117) U/L Total Creatine Kinase (39-308) U/L POC Troponin I < 0.03 (0-0.045) ng/ml Troponin I (0-0.045) ng/ml Total Protein (6.4-8.2) gm/dl Albumin (3.4-5.0) gm/dl Globulin (2.5-4.0) gm/dl Albumin/Globulin Ratio (0.9-2) TSH (0.300-4.500) uIu/ml Imaging Data Attestation: I personally reviewed and interpreted this imaging study as follows: Blood Pressure Blood Pressure Findings: Elevated blood pressure Blood Pressure Disposition: further management by hospitalist [facility] Narrative Prior records/ancillary studies reviewed. Triage Nursing notes reviewed. Additional history obtained from family. The patient's history was concerning for palpitations, headache, high blood pressure. Differential diagnosis: Etiologies such as premature contractions, cardiac, blood pressure problem, electrolyte abnormality, cardiac dysrhythmia, thyroid dysfunction, pulmonary embolism, infection, gastrointestinal, as well as others were entertained. Physical examination: Benign as above. ER treatment provided: Hydralazine On reassessment the patient felt better. Diagnostic interpretation by me: Cardiac monitoring revealed occasional PVC. The electrocardiogram was negative for pathologic change. Normal sinus, normal intervals, occasional PVC, no acute ST-T wave changes. Impression normal sinus rhythm with occasional PVC interpreted by myself I think arrhythmia is unlikely. EKG shows normal sinus rhythm with no interval abnormalities such as QT prolongation or WPW. There are no findings to suggest Brugada syndrome. Cardiac monitoring in the emergency department reveals no tachycardic or bradycardic dysrhythmia. Hypertrophic cardiomyopathy was considered but there are no clear historical elements pointing toward this. EKG is not suggestive. The QRS voltage is not extremely large and there are no suggestive Q waves. The labs revealed no leukocytosis. Euthyroid. Negative troponin Imaging studies: Chest x-ray with no acute consolidation, pneumothorax or free air per my interpretation CT HEAD: Left maxillary sinus mucous retention cyst. No ICH, mass effect or edema. No evidence of acute cortical stroke. Chronic small vessel ischemic change. Radiologist: Forrest Ba M.D. HEART SCORE: Hx: high/mod/low suspicion: 1 ECG: ST depression/nonspecific changes/normal: 0 Age: Greater than 65/45-64/less than 45: 2 Risk factors: (Hypertension, hyperlipidemia, diabetes, coronary disease, tobacco use, cocaine use): 2 Troponin: Greater than 2 times normal limits/1-2 times normal limits/normal: 0 Total: 5 Consultation: A consultation was placed with Dr. Avitia, hospitalist. The case was discussed and diagnostics were reviewed. The patient was evaluated in the ER for further treatment. This appears to be consistent with high blood pressure, headache and chest discomfort. Patient's blood pressure is quite high. He does have a history of heart disease. Heart score is 5. Medicine was consulted. Patient is agreeable treatment plan of admission. By the evaluation outlined above emergent etiolog ies such as electrolyte abnormality, cardiac dysrhythmia, thyroid dysfunction, pulmonary embolism, infection, as well as others were deemed relatively unlikely. The pt informed about the findings as listed above. All questions were answered and pleased with the treatment. Case reviewed with my attending The chart was completed utilizing [employer] Speech voice recognition software. Grammatical errors, random word insertions, pronoun errors, and incomplete sentences are an occassional consequence of this system due to software limitations, ambient noise, and hardware issues. Any formal questions or concerns about the content, text, or information contained within the body of this dictation should be directly addressed to the physician accounts receivable assistant for clarification. Impression & Plan Hypertensive urgency, Chest discomfort Discharge Plan Visit Data Chief Complaint: Arrhythmia/Palpitations Stated Complaint: PALPITATIONS, PAIN AROUND THROAT ED Provider: Syl Dubose ED Midlevel Provider: Dori Bush Discharge Problem: Hypertensive urgency, Chest discomfort Patient Disposition: Being Evaluated by Hospitalist Condition: Good Forms Stand Alone Forms: My [facility] Prescriptions Prescriptions: No Action losartan [Cozaar] 100 mg tablet 100 mg PO DAILY Qty: 90 RF: 3 atorvastatin 20 mg tablet 30 mg PO DAILY RF: 0 ranitidine HCl 150 mg capsule 150 mg PO BID Qty: 60 RF: 2 aspirin, buffered 325 mg Tablet 325 mg PO .TODAY RF: 0 glipizide 5 mg tablet extended release 24hr 10 mg PO QAM RF: 0 carvedilol 25 mg Tablet 25 mg PO BID RF: 0 aspirin 81 mg Tablet,Delayed Release (Dr/Ec) 81 mg PO QPM RF: 0 hydrochlorothiazide 25 mg Tablet 25 mg PO QAM RF: 0 metformin 750 mg Tablet Extended Release 24 Hr 750 mg PO PM RF: 0 Referrals Referrals: Mason Sanz III, MD [Primary Care Provider] -
--- NOTE | 2018-10-14 02:25 | History & Physical Report ---
Date of Service October 14, 2018 Assessment & Plan (1) Chest pressure: 68 y/o m Hx CAD, HTN, HLD, DM II, GERD. Presenting with a headache, epigastric pain, neck and chest pressure and palpitations. His symptoms persisted since early evening. He has nit had SOB, N/V or diaphoresis. He stat es the he feels like his heart is occasionally skipping a beat. He states he was feeling well during the day and was working at the [employer] without issue. On review of the pt's chart, it appears that he was having anginal symptoms late last year which culminated in a catheterization 11/2017. This demonstrated mild diffuse CAD and more significant disease in his RCA which did not however, r equire stenting. Initial troponin was with normal limits. And EKG demonstrated PVCs and did not otherwise support a diagnosis of ACS. The pt's blood pressure on arrival to the ER was 180/90. 1) CP - we will trend his troponin and cont ASA, atorvastatin, Coreg - we will consult his sleep lab technician due to his cath findings 10 months prior 2) HTN - may be the cause of his symptoms. He is maxed out on Carvedilol although he could likely tolerate additional beta isai. We will add a low dose of Hydralaziine. He did not previously tolerate Amlodipine. He will be monitored on telemetry overnight. 3) DM II - placed on a SS 4) HLD - cont statin 5) GERD - cont Ranitidine 6) The pt's headache had resolved at the time of admission - possibly due to improved BP Full code - Lovenox prophylaxis Total time for this admit including review of labs, meds, imaging, records - discussion with pt and ER attending - 37 min Present on Admission?: Yes History of Present Illness Chief Complaint: HTN - headache, abdominal pain, chest pressure, palpitations - jitters Primary Care Provider: Mason Sanz MD 68 y/o m Hx CAD, HTN, HLD, DM II, GERD. Presenting with a headache, epigastric pain, neck and chest pressure and palpitations. His symptoms persisted since early evening. He has nit had SOB, N/V or diaphoresis. He states the he feels like his heart is occasionally skipping a beat. He states he was feeling well during the day and was working at the [employer] without issue. On review of the pt's chart, it appears that he was having anginal symptoms late last year which culminated in a catheterization 11/2017. This demonstrated mild diffuse CAD and more significant disease in his RCA which did not however, require stenting. Initial troponin was with normal limits. And EKG demon strated PVCs and did not otherwise support a diagnosis of ACS. The pt's blood pressure on arrival to the ER was 180/90. PMH: 1) CAD - LAD stent 2004. Cardiac cath 2017 - nonocclusive RCA disease initially reported as 40-70% proximal stenosis. Good flow was demonstrated and stenting was deemed unnecessary. 2) HTN 3) HLD 4) GERD 5) DM II 6) Grade I diastolic dysfunction 7) Aortic regurge Surgical: Colonoscopy with polypectomy, LAD stent Social: Does not drink or smoke [employer] by vocation Allergies Allergy/AdvReac Type Severity Reaction Status Date / Time No Known Drug Allergies Allergy Unknown . Verified 03/12/18 06:34 No Known Drug Allergies Allergy Uncoded 08/13/18 10:41 Home Medications Home Medications Medication Instructions Recorded Confirmed Type aspirin 81 mg PO QPM 12/28/17 10/13/18 History carvedilol 25 mg PO BID 12/28/17 10/13/18 History hydrochlorothiazide 25 mg PO QAM 12/28/17 10/13/18 History metformin 750 mg PO PM 12/28/17 10/13/18 History atorvastatin 20 mg tablet 30 mg PO DAILY tab 09/03/18 10/13/18 History ranitidine 150 mg capsule 150 mg PO BID #60 cap 09/03/18 10/13/18 Rx losartan 100 mg tablet 100 mg PO DAILY #90 tab 10/09/18 10/13/18 Rx aspirin, buffered 325 mg PO .TODAY 10/13/18 10/13/18 History glipizide 10 mg PO QAM 10/13/18 10/13/18 History Past Med/Surg History Medical History Tubular adenoma of colon (Acute) Rhabdomyolysis (Acute) Paresthesias/numbness (Acute) Pain in joint, hand (Acute) Nephrolithiasis (Acute) Male erectile disorder of organic origin (Acute) Insomnia (Acute) Hyperplastic colon polyp (Acute) Hypercholesterolemia (Chronic) Diabetes mellitus type 2, uncontrolled (Acute) Cervical radiculopathy (Acute) Cataract (Acute) CAD in [place] artery (Chronic) Arthritis of lumbar spine (Acute) Aortic regurgitation (Acute) Anxiety (Acute) Actinic keratosis (Acute) HLD (hyperlipidemia) (Chronic) HTN (hypertension) (Chronic) Degenerative disc disease CERVICAL SPINE Diabetes mellitus, type 2 Osteoarthritis Surgical History History of cardiac cath X2 3-4 WEEKS AGO - [facility] - ACTIVITY INTOLERANCE - NO STENTS/ANGIOPLASTY - FOLLOWS BOUCHRA AROUND 2003 - [facility] - CP - 1 STENT History of cataract surgery LEFT 01/22/2018. 4mg versed. no issues. History of colonoscopy History of esophagogastroduodenoscopy (EGD) History of heart artery stent X1--13 YEARS AGO. DRUG ELUTING STENT History of tonsillectomy Family History Father Family history of diabetes mellitus Social History Preferred Language: Korean Communication Ability: Effective Health Technician Hearing Required: No Beliefs That Will Affect Care: None Current Living Situation: Spouse Feels Safe at Home: Yes Smoking Status: Never smoker Second Hand Exposure: No ; Hx Alcohol Use: No Hx Substance Use: No Review of Systems Review of Systems: Gen: Denies fevers, night sweats, rigors, fatigue, malaise, weight loss/gain ENT: Denies congestion, throat pain, hearing loss Eyes: Denies acute visual changes CV: Chest pressure and palpitations Pulmonary: Denies SOB, cough, wheezing GI: Epigastric pain Neuro: Denies acute or unilateral weakness, acute gait impairment. + headache. Musculoskeletal: Denies joint pain, inflammation Endocrine: Denies polydipsia, polyuria Skin: Denies acute rashes or ulcers Physical Exam Physical Exam: General: AAO x 3, no distress ENT: No erythema or exudates, no thrush Eyes: ANDREW, EOMI Head and neck: Normocephalic, atraumatic, No JVD, neck is supple. Chest/heart: Nontender, S1,2, irregular/PVCs, no murmurs, no gallops Lungs: CTAB, no wheezing or crackles Abdomen: Nontender, nondistended, BS+ Neuro: AAO x 3, speech is clear, no unilateral weakness or loss of sensation, coordination intact Musculoskeletal: No joint inflammation, muscle tenderness, FROM Skin: No acute rashes or ulcers Extremities: No clubbing, cyanosis, edema Results & Data Vital Signs (Past 12 Hours) Vital Signs Temp Pulse Resp BP Pulse Ox 10/14/18 02:06 91 H 16 159/105 H 95 10/14/18 01:00 86 16 162/101 H 95 10/14/18 00:32 86 16 180/94 H 94 10/14/18 00:00 81 20 160/88 H 94 10/13/18 23:39 83 16 94 10/13/18 23:38 86 17 166/97 H 94 10/13/18 23:37 86 17 10/13/18 23:10 95 10/13/18 23:00 87 16 182/97 H 96 10/13/18 22:58 90 21 176/104 H 95 10/13/18 22:32 97 H 16 176/126 H 96 10/13/18 22:30 85 17 96 10/13/18 22:27 95 10/13/18 22:23 90 19 10/13/18 22:18 95 H 15 205/110 H 10/13/18 22:09 98.6 F 71 16 212/91 H 97 Diagnostic Findings EKG: Sinus, PVCs, no acute elevations/depressions PG Care Time/CCT Total # of Minutes Spent Total Time Spent with Patient: Total time spent is greater than 50% in coordination of care (as documented) at patient's floor/unit and/or counseling patient:
[2018-10-14] MEDS ORDERED: MAGNESIUM HYDROXIDE SUSP 30 ML UDC PO PRN (03:46)
[2018-10-14] MEDS ORDERED: NITROGLYCERIN SL 0.4 MG/TAB TAB SL PRN (03:46)
[2018-10-14] MEDS ORDERED: POLYETHYLENE (MIRALAX) 17 GM PACK PO PRN (03:46)
[2018-10-14] MEDS ORDERED: ALUMINUM/MAGNESIUM SUSP 30 ML UDC PO PRN (03:46)
[2018-10-14] MEDS ORDERED: ZOLPIDEM TARTRATE 5 MG TAB PO PRN (03:46)
[2018-10-14] MEDS ORDERED: ACETAMINOPHEN 325 MG TAB PO PRN (03:46)
[2018-10-14] MEDS ORDERED: ONDANSETRON INJ 2 MG/ML 2 ML VIAL IV PRN (03:46)
[2018-10-14] MEDS ORDERED: MoRPHine SULFATE 2 MG/ML CARP IV PRN (03:46)
[2018-10-14] MEDS ORDERED: HydrALAZINE 10 MG TAB PO PRN (03:46)
[2018-10-14] MEDS ORDERED: CARBOHYDRATES FOR HYPOGLYCEMIA PO PRN (04:30)
[2018-10-14] MEDS ORDERED: GLUCOSE 10 TABS/TUBE PO PRN (04:30)
[2018-10-14] MEDS ORDERED: GLUCOSE 40% GEL 15 GM TUBE PO PRN (04:30)
[2018-10-14] MEDS ORDERED: GLUCAGON FOR INJ 1 MG VIAL IM PRN (04:30)
[2018-10-14] MEDS ORDERED: DEXTROSE 50% 50 ML SYRINGE IV PRN (04:30)
--- NOTE | 2018-10-14 05:38 | CT Scan Report ---
CT head/brain wo con CT DOSE: 537.48 mGy.cm HISTORY: Mental status change PARSONS/HTN TECHNIQUE: Multiaxial CT images of the head were performed without the use of intravenous contrast. A dose lowering technique was utilized adhering to the principles of ALARA. Comparison: None. Findings: The paranasal sinuses and mastoid air cells are clear. The calvarium and skull base are int act. The ventricles and sulci are within normal limits. There is no mass, hematoma, midline shift, or acute infarct. Impression: No acute intracranial abnormality. The above report was generated using voice recognition software. It may contain grammatical, syntax or spelling errors. Electronically signed by: Dereck Teran M.D. 10/14/2018 5:37 AM
--- NOTE | 2018-10-14 05:39 | XRay Report ---
XR chest 1V portable CLINICAL HISTORY: cp dyspnea COMPARISON STUDY: 11/20/2017 FINDINGS: Chronic atelectatic change right base. No acute infiltrate. Diaphragms are smooth. IMPRESSION: No acute process. The above report was generated using voice recognition software. It may contain grammatical, syntax or spelling errors. Electronically signed by: Dereck Teran M.D. 10/14/2018 5:37 AM
[2018-10-14 06:27] LABS: Prothrombin Time 10.5 Seconds (9.0-12.0)
--- NOTE | 2018-10-14 06:52 | Emergency Department Note ---
ED Visit Note I have personally seen and evaluated the patient with the PA. I agree with the diagnosis and management decisions and have been personally involved in the case. Upon my evaluation the patient, he appeared to be resting comfortably. Results were reviewed and the patient has agreed to evaluation by the hospitalist. Please see Yola Bush PA-C's notes for further details of the history, physical and visit. .
[2018-10-14] MEDS: INSULIN ASPART 100 UNITS/ML 3 ML PEN SC SCH ×2 (07:50→11:33)
[2018-10-14] MEDS ORDERED: Nursing to Pharmacy Communication ONE (07:53)
[2018-10-14] MEDS ORDERED: CARVEDILOL 25 MG TAB PO SCH (09:00)
[2018-10-14] MEDS ORDERED: LOSARTAN POTASSIUM 50 MG TAB PO SCH (09:00)
[2018-10-14] MEDS ORDERED: hydroCHLOROthiazide 25 MG TAB PO SCH (09:00)
[2018-10-14] MEDS ORDERED: ENOXAPARIN INJ 40 MG/0.4 ML SYR SQ SCH (09:00)
[2018-10-14] MEDS ORDERED: ATORVASTATIN 20 MG TAB PO SCH ×2 (09:00→21:00)
--- NOTE | 2018-10-14 11:04 | Cardiology Consultation ---
Date of Consultation October 14, 2018 Assessment & Plan (1) Chest discomfort: The patient experienced 9 hours of symptoms, but has an unremarkable EKG and troponin levels are undetectable. This symptom complex does not represent myocardial ischemia. We will leave the decision regarding outpatient stress testing to Dr. Colunga. Patient is stable for hospital discharge today. (2) CAD in [place] artery: The patient has a history of drug-eluting stent in the proximal LAD performed in July 2004. Cardiac catheterization in November 2017 noted a patent stent and nonobstructive disease in the right coronary artery. Continue medical management. (3) HTN (hypertension): The patient now demonstrates adequate control on his current regimen. (4) HLD (hyperlipidemia): Continue atorvastatin. History of Present Illness Attending Physician: Senthil Iglesias History of Present Illness Mr. Kennedy is a 68-year-old admitted early this morning with a chest pain syndrome. This consultation was ordered to assist in his management. Of note, patient typically follows with Dr. Colunga in the outpatient setting. The patient was in his usual state of good health until approximately 6 p.m. last evening when he developed a pressure sensation in his anterior neck with associated headache and anxiety. Patient became quite concerned checked his pulse. He noted an irregularity and decided to proceed to the emergency room for further care. On arrival here, his blood pressure was 212/90, and he was successfully treated with intravenous hydralazine. However, his symptoms persisted until approximately 3 a.m. when a resolved spontaneously. The patient is vigorous on a daily basis caring for his home and gardens. He does not experience exertional angina pectoris or limiting dyspnea. He occasionally notes some mid epigastric discomfort which she attributes to his hiatal hernia. He occasionally notes some dyspnea with very vigorous physical activity. He denies syncope, presyncope, PND, orthopnea, palpitations, lower extremity edema, and claudication. The patient's cardiac history began in July 2004 when he had a drug-eluting stent placed in the proximal LAD at [facility]. The patient was living in [facility] at that time. His most recent stress echocardiogram was performed in September 2016 and was negative at 89% of the maximum predicted heart rate. Baseline echocardiogram noted normal systolic function with mild LVH, diastolic dysfunction, and trace aortic insufficiency. The patient underwent a cardiac catheterization in November which noted a 10% in stent restenosis within the proximal LAD RAJNI. He was found have a 50-70% stenosis in the proximal LAD, but the FFR was negative. Medical management was recommended at that time. Currently, patient is resting comfortably in bed without complaints. Past medical and surgical history 1. Coronary artery disease-see above 2. Proximal LAD RAJNI-July 2004 3. Hypertension 4. Hypercholesterolemia 5. Mild LVH 6. Trivial to mild aortic insufficiency 7. Diabetes mellitus 8. Nephrolithiasis 9. DJD 10. Cervical spinal radiculopathy 11. 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 Allergies Allergy/AdvReac Type Severity Reaction Status Date / Time No Known Drug Allergies Allergy Unknown . Verified 03/12/18 06:34 Home Medications Home Medications Medication Instructions Recorded Confirmed Type aspirin 81 mg PO QPM 12/28/17 10/13/18 History carvedilol 25 mg PO BID 12/28/17 10/13/18 History hydrochlorothiazide 25 mg PO QAM 12/28/17 10/13/18 History metformin 750 mg PO PM 12/28/17 10/13/18 History atorvastatin 20 mg tablet 30 mg PO DAILY tab 09/03/18 10/13/18 History ranitidine 150 mg capsule 150 mg PO BID #60 cap 09/03/18 10/13/18 Rx losartan 100 mg tablet 100 mg PO DAILY #90 tab 10/09/18 10/13/18 Rx aspirin, buffered 325 mg PO .TODAY 10/13/18 10/13/18 History glipizide 10 mg PO QAM 10/13/18 10/13/18 History Patient History Medical History Tubular adenoma of colon (Acute) Rhabdomyolysis (Acute) Paresthesias/numbness (Acute) Pain in joint, hand (Acute) Nephrolithiasis (Acute) Male erectile disorder of organic origin (Acute) Insomnia (Acute) Hyperplastic colon polyp (Acute) Hypercholesterolemia (Chronic) Diabetes mellitus type 2, uncontrolled (Acute) Cervical radiculopathy (Acute) Cataract (Acute) CAD in [place] artery (Chronic) Arthritis of lumbar spine (Acute) Aortic regurgitation (Acute) Anxiety (Acute) Actinic keratosis (Acute) HLD (hyperlipidemia) (Chronic) HTN (hypertension) (Chronic) Degenerative disc disease CERVICAL SPINE Diabetes mellitus, type 2 Osteoarthritis Surgical History History of cardiac cath X2 3-4 WEEKS AGO - [facility] - ACTIVITY INTOLERANCE - NO STENTS/ANGIOPLASTY - FOLLOWS BOUCHRA AROUND 2003 - [facility] - CP - 1 STENT History of cataract surgery LEFT 01/22/2018. 4mg versed. no issues. History of colonoscopy History of esophagogastroduodenoscopy (EGD) History of heart artery stent X1--13 YEARS AGO. DRUG ELUTING STENT History of tonsillectomy Family History Father Family history of diabetes mellitus Social History Preferred Language: Hebrew Communication Ability: Effective Computing Architect Required: No Beliefs That Will Affect Care: None Current Living Situation: Spouse Other Information That Helps Us Care for You: No Feels Safe at Home: Yes Safety Concerns: Feels Safe At This Time Smoking Status: Never smoker Do You Dip or Chew Tobacco: No ; Second Hand Exposure: No ; Hx Alcohol Use: No Hx Substance Use: No Physical Exam Physical Exam: In general this is a well-developed well-nourished white male in no acute distress. HEENT exam is negative. Neck is supple with full carotid upstrokes. There are no carotid bruits. Jugular venous pressure is flat at 90. There is no thyromegaly. Cardiovascular exam reveals a regular rhythm with a normal S1 and S2. No S3, S4, or murmurs are noted. Lungs are clear without rales, rhonchi, or wheezes. Abdomen is soft and nontender without bruits. Extremities reveal intact radial artery and posterior tibial pulses bilaterally. There is no peripheral edema. Results & Data Vital Signs (Past 12 Hours) Vital Signs Temp Pulse Pulse Resp BP BP BP 10/14/18 08:00 36.8 C 87 16 10/14/18 07:30 70 15 10/14/18 07:00 66 17 119/70 10/14/18 04:00 36.8 C 83 17 157/94 H 10/14/18 03:46 36.9 C 81 15 168/96 H 10/14/18 03:09 81 16 164/91 H 10/14/18 03:00 83 17 154/86 H 10/14/18 02:30 83 16 154/93 H 10/14/18 02:08 84 22 10/14/18 02:06 91 H 16 159/105 H 10/14/18 01:00 86 16 162/101 H 10/14/18 00:32 86 16 180/94 H 10/14/18 00:00 81 20 160/88 H 10/13/18 23:39 83 16 10/13/18 23:38 86 17 166/97 H 10/13/18 23:37 86 17 10/13/18 23:10 10/13/18 23:00 87 16 182/97 H 10/13/18 22:58 90 21 176/104 H Pulse Ox 10/14/18 08:00 95 10/14/18 07:30 95 10/14/18 07:00 93 10/14/18 04:00 96 10/14/18 03:46 95 10/14/18 03:09 94 10/14/18 03:00 95 10/14/18 02:30 95 10/14/18 02:08 96 10/14/18 02:06 95 10/14/18 01:00 95 10/14/18 00:32 94 10/14/18 00:00 94 10/13/18 23:39 94 10/13/18 23:38 94 10/13/18 23:37 10/13/18 23:10 95 10/13/18 23:00 96 10/13/18 22:58 95 Laboratory Results CBC notes a hemoglobin of 14.7, hematocrit 41.5, white count 7.1, and a platelet count of [id number]. Electrolytes note a sodium of 139, potassium 4.3, chloride 104, bicarb 28, BUN 19, creatinine 1.58, and a glucose of 164. Three troponin I levels are undetectable less than 0.015. TSH levels normal at 2.22. Diagnostic Findings EKG notes normal sinus rhythm with an occasional PVC. court monitor notes occasional PVCs. PG Care Time/CCT Total # of Minutes Spent Total Time Spent with Patient: Total time spent is greater than 50% in co ordination of care (as documented) at patient's floor/unit and/or counseling patient:
[2018-10-14] MEDS ORDERED: ASPIRIN 81 MG ECTAB PO SCH (21:00)
--- NOTE | 2018-10-15 21:57 | Discharge Summary ---
Date of Service October 14, 2018 Admission HPI Per Admitting Provider 68 y/o m Hx CAD, HTN, HLD, DM II, GERD. Presenting with a headache, epigastric pain, neck and chest pressure and palpitations. His symptoms persisted since early evening. He has nit had SOB, N/V or diaphoresis. He states the he feels like his heart is occasionally skipping a beat. He states he was feeling well during the day and was working at the [employer] without issue. On review of the pt's chart, it appears that he was having anginal symptoms late last year which culminated in a catheterization 11/2017. This demonstrated mild diffuse CAD and more significant disease in his RCA which did not however, require stenting. Initial troponin was with normal limits. And EKG demonstrated PVCs and did not otherwise support a diagnosis of ACS. The pt's blood pressure on arrival to the ER was 180/90. PMH: 1) CAD - LAD stent 2004. Cardiac cath 2017 - nonocclusive RCA disease initially reported as 40-70% proximal stenosis. Good flow was demonstrated and stenting was deemed unnecessary. 2) HTN 3) HLD 4) GERD 5) DM II 6) Grade I diastolic dysfunction 7) Aortic regurge Surgical: Colonoscopy with polypectomy, LAD stent Social: Does not drink or smoke [employer] by vocation Principal Diagnosis chest pain Discharge Exam General: AAO x 3, no distress ENT: No erythema or exudates, no thrush Eyes: ANDREW, EOMI Head and neck: Normocephalic, atraumatic, No JVD, neck is supple. Chest/heart: Nontender, S1,2, irregular/PVCs, no murmurs, no gallops Lungs: CTAB, no wheezing or crackles Abdomen: Nontender, nondistended, BS+ Neuro: AAO x 3, speech is clear, no unilateral weakness or loss of sensation, coordination intact Musculoskeletal: No joint inflammation, muscle tenderness, FROM Skin: No acute rashes or ulcers Extremities: No clubbing, cyanosis, edema Discharge Data Allergies Allergy/AdvReac Type Severity Reaction Status Date / Time No Known Drug Allergies Allergy Unknown . Verified 03/12/18 06:34 Consultations 10/14/18 00:15 ED Decision to Admit Stat 10/14/18 03:55 Consult Cardiology Routine Ordered Studies 10/13/18 23:03 CT head/brain wo con Urgent Hospital Course (1) Chest pressure: 68 y/o m Hx CAD, HTN, HLD, DM II, GERD. Presenting with a headache, epigastric pain, neck and chest pressure and palpitations. His symptoms persisted since early evening. He has nit had SOB, N/V or diaphoresis. He states the he feels like his heart is occasionally skipping a beat. He states he was feeling well during the day and was working at the [employer] without issue. On review of the pt's chart, it appears that he was having anginal symptoms late last year which culminated in a catheterization 11/2017. This demonstrated mild diffuse CAD and more significant disease in his RCA which did not however, require stenting. Initial troponin was with normal limits. And EKG demonstrated PVCs and did not otherwise support a diagnosis of ACS. The pt's blood pressure on arrival to the ER was 180/90. 1) CP - we will trend his troponin and cont ASA, atorvastatin, Coreg - we will consult his pressing machine tender due to his cath findings 10 months prior 2) HTN - may be the cause of his symptoms. He is maxed out on Carvedilol although he could likely tolerate additional beta isai. We will add a low dose of Hydralaziine. He did not previously tolerate Amlodipine. He will be monitored on telemetry overnight. 3) DM II - placed on a SS 4) HLD - cont statin 5) GERD - cont Ranitidine 6) The pt's headache had resolved at the time of admission - possibly due to improved BP Full code - Lovenox prophylaxis Appreciate input from cardio: (1) Chest discomfort: The patient experienced 9 hours of symptoms, but has an unremarkable EKG and troponin levels are undetectable. This symptom complex does not represent myocardial ischemia. We will leave the decision regarding outpatient stress testing to Dr. Colunga. Patient is stable for hospital discharge today. (2) CAD in [place] artery: The patient has a history of drug-eluting stent in the proximal LAD performed in July 2004. Cardiac catheterization in November 2017 noted a patent stent and nonobstructive disease in the right coronary artery. Continue medical management. (3) HTN (hypertension): The patient now demonstrates adequate control on his current regimen. (4) HLD (hyperlipidemia): Continue atorvastatin Total Time Total Time Spent Total Time Spent (In Minutes): 32 Total Time Includes: Examination of the Patient, Discharge Planning and Medication Reconciliation Discharge Plan Discharge Items Patient Disposition: Home - Self-Care Reason For Visit: HTN, CP Discharge Diagnosis: Chest pain Condition: Good Discharge Goals: Decrease discomfort Activity: Resume your previous activity Non-emergency contact: Primary Care Provider Call non-emergency contact if: you have any medication questions Follow-up/Referrals: Mason Sanz III, MD [Primary Care Provider] - Diet: Heart Healthy Addtl Provider Instructions: Will recommend followup with your Agent Based Modeler as an outpatient. And a followup with your PCP in 1-2 weeks. You may need a stress test as an outpatient, but this decision will be determined by your pressing machine tender. For now, you were not evaluated Prescriptions: Continued losartan [Cozaar] 100 mg tablet 100 mg PO DAILY Qty: 90 RF: 3 ranitidine HCl 150 mg capsule 150 mg PO BID Qty: 60 RF: 2 glipizide 5 mg tablet extended release 24hr 10 mg PO QAM RF: 0 Discontinued aspirin, buffered 325 mg Tablet 325 mg PO .TODAY RF: 0 No Action carvedilol 25 mg tablet 25 mg PO BID Qty: 180 RF: 3 atorvastatin 20 mg tablet 30 mg PO HS RF: 0 aspirin 81 mg tablet,delayed release (DR/EC) 81 mg PO QPM RF: 0 hydrochlorothiazide 25 mg tablet 25 mg PO QAM RF: 0 metformin 750 mg tablet extended release 24 hr 750 mg PO BID RF: 0 Stand-Alone Forms: [facility] Discharge Orders: Discharge Order (Routine); Ordered 10/14/18 Ordered By: Senthil Iglesias Admission Data Admit Date/Time: 10/14/18 02:56 Attending Provider: Senthil Iglesias Admit Provider: Jl Avitia Primary Care Provider: Mason Sanz III Other Providers: lJ Avitia ; Tristan Colunga Service: Telemetry Other Interventions: Discharge Summary Assessment (RN) Last Done: 10/14/18 11:35 DC Date/Time DO NOT enter until pt leaves facility: 10/14/18 12:40
== END 2018-10-14 12:40 | disposition home or self-care (01) ==
LOC: 1E 22:03 → ED 22:03 → SUATTDRO 10-14 02:56 → 1E 10-14 03:28

== ENCOUNTER 2022-05-15 08:39 | Inpatient (IN) ==
--- NOTE | 2022-05-15 09:17 | Emergency Department Note ---
Impression & Plan Binocular vision disorder with diplopia, Headache, HTN (hypertension) ED Provider Note Provider: Khris Bai MD DATE OF SERVICE: 05/15/2022 CHIEF COMPLAINT: Vision change, headache HISTORY OF PRESENT ILLNESS: Patient is a 72-year-old gentleman history of diabetes, hypertension, CAD, cervical retinopathy presenting here today for the past 2 days of this. Seeing some generalized headache worsened yesterday to more of a left-sided headache diminished from now. Denies any trauma or falls. Reports she has had some pain radiating into his left neck and left shoulder but not all the way down to his left hand or arm. Does report a history of cervical disc neuropathy here similar to the neck pain. Reports that last night between 9 and 11 PM he experienced the onset of some double vision between his eyes. States opening each eye independently is okay but together gives him double vision. Denies any numbness or weakness in the extremities. Denies any speech issues or dizziness at this point that is new. Does report a bit of orthostasis and dizziness with changing positions but this has been chronic. Denies any chest pain, shortness of breath, or abdominal symptoms otherwise. Thought things might improve and took some Tylenol and stayed home last night. convinced him to come in today given persistent symptoms. Does have a history of cataract surgery in the past. Denies significant pain of the eye itself or around the left frontal head region. No pain with movement of the eye. And headache pain at this point is moderating. PAST MEDICAL HISTORY: As noted above MEDICATIONS: Reviewed medications includes 81 mg aspirin SOCIAL HISTORY: and lives at home PHYSICAL EXAM: GENERAL: alert and oriented in no acute distress on stretcher Head: normocephalic and atraumatic EYES: No injection, discharge or icterus. PERRL, EOMI. NECK: Trachea midline. Supple. ENT: Mucous membranes pink and moist. Pharynx without erythema or exudate. LUNGS: Airway patent. No retractions. Breath sounds clear with good air entry bilaterally. HEART: Regular rate and rhythm. No chest wall tenderness ABDOMEN: Soft and non-tender, without guarding or rebound. No hepatosplenomegaly or masses BACK: No midline tenderness, no SI joint tenderness. No bilateral flank tenderness. SKIN: Acyanotic, warm, dry, without rashes EXTREMITIES: Without swelling, tenderness or deformity NEUROLOGICAL: No focal deficits. No aphasia. No facial droop or slurred speech. Normal strength and tone in the extremities. Sensation to gross touch normal. Ambulatory. EK diabetes provided appears to be sinus rhythm although there is some baseline artifact. No acute ST segment elevation or depression is noted with a QTc of 430. No PVC noted. CONTINUOUS CARDIAC MONITORING: was ordered and showed a heart rate of bpm in Patient's laboratory studies and imaging reviewed. Differential includes Migraine headache, meningitis, sinusitis, ICH, SAH, infection, tumor, headache, sinus thrombosis, arterial dissection, as well as other pathologies. IMPRESSION/MEDICAL DECISION MAKIN-year-old gentleman on 81 mg aspirin with cardiac disease as well as history of cervical radiculopathy presenting here today with headache for couple of days now more centered in the left frontal region improving but now with double vision. States the vision change again is only with opening both eyes at the same time. Denies other dizziness. No other aphasia, slurred speech, numbness or weakness, or other neurological findings reported. Denies change in peripheral vision or visual marino in discussion with him. ESR and CRP are sent but bit of an odd presentation for GCA. Does have a history of cataract surgery but there is no evidence of significant injection or eye discharge and denies relief of acute eye pain. I doubt acute glaucoma, uveitis, or iritis. Does not seem consistent given the lack of trauma with an orbital hematoma and doubt a specific orbital infection. Will complete CTs of the head as well as CT angiograms of the head and neck to look for possible stroke because of vascular abnormality. Is hypertensive here although they report he has a history of [place] hypertension. Basic labs checked. EKG obtained is the pain does radiate into his left shoulder. How much of this is chronic related to his underlying cervical radiculopathy is a question. Core cervical spine issues would would not explain his vision issues. Basic labs here without significant anemia or leukocytosis. Normal platelet count. No elevated CRP. Negative COVID. Chemistries without severe abnormality although a mildly elevated glucose is noted consistent with his history of diabetes. EKG and troponin reassuring and I doubt acute ACS at this point or cardiac etiology. ESR within normal limits. CT and CT angiograms per radiology without evidence of acute intracranial bleed or mass. No significant stenoses or occlusions of the vertebral or carotid arteries although some multifocal narrowing within the left carotid siphon due to plaque is noted. Patient's blood pressure does remain somewhat elevated. 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 Cannot exclude stroke. Discussed with him and at bedside findings. Will bring into the hospital for further evaluation and hospitalist was contacted. Given a bit of Toradol for his headache. Permissive hypertension in light of possible CVA although it is significantly elevated. DIAGNOSIS: Double vision/diplopia, hypertension, headache DISPOSITION: Hospitalist will evaluate Patient was agreeable with this plan. Past Med/Surg History Medical History Actinic keratosis Anxiety Aortic regurgitation Mild AR/ on echo 2017 & cath 2018 Arthritis of lumbar spine CAD in [place] artery Cataract Cervical radiculopathy Degenerative disc disease CERVICAL SPINE Erectile dysfunction GERD (gastroesophageal reflux disease) Hypercholesterolemia Male erectile disorder of organic origin Nephrolithiasis Osteoarthritis Primary hypertension Rhabdomyolysis Tubular adenoma of colon (11/25/16) recheck 5 years, Case Type 2 diabetes mellitus with microalbuminuria White coat syndrome with hypertension Surgical History History of cardiac cath History of cataract surgery LEFT 01/22/2018. 4mg versed. no issues. History of colonoscopy (11/25/16) tubular adenoma and hyperplastic polyp removed, recheck 5 years, Dr. Stevens History of esophagogastroduodenoscopy (EGD) History of heart artery stent History of tonsillectomy Family History Father Family history of diabetes mellitus Coronary heart disease Stroke Depression Diabetes Heart disease Myocardial infarction Mother Coronary heart disease Cancer Breast cancer Other Rheumatoid arthritis Denies family history of Sudden SIDS (sudden infant syndrome) Ovarian cancer Prostate cancer Deep vein thrombosis Osteoporosis Dyslipidemia Cerebral aneurysm Alzheimer disease Bipolar disorder Clotting disorder Crohn's disease Dementia Kidney disease Osteoarthritis Schizophrenia Congenital kidney disease Gestational diabetes Lung cancer COPD (chronic obstructive pulmonary disease) Colorectal cancer Pulmonary embolism Lung disease Hypertension Ulcerative colitis Colonic polyp Asthma Cystic kidney disease Social History Smoking Status: Never smoker Second Hand Exposure: No; Hx Alcohol Use: No Hx Substance Use: No Preferred Language: Vietnamese Communication Ability: Effective Visual Impairment: Partially Limited Hearing Ability: Normal Electric Operator Required: No Beliefs That Will Affect Care: None marital status: Current Living Situation: Spouse current occupational status: retired current occupation: [employer] Feels Safe at Home: Yes Safety Concerns: Feels Safe At This Time Childhood Exposure to Second-Hand Smoke: Yes caffeine: No during the past year weight has: remained stable Dental Care, Regularly: Yes Physical Activity Frequency: 1-2 Times per Week Seatbelt Use: always Sunscreen Use: No Assistive Devices: Glasses Allergies Allergies Allergy/AdvReac Type Severity Reaction Status Date / Time No Known Drug Allergies Allergy Unknown . Verified 05/15/22 13:23 Home Meds Home Medications Medication Instructions Recorded Confirmed aspirin 81 mg tablet,delayed 81 mg PO QPM 10/16/18 05/15/22 release blood-glucose meter, drum-type #1 ea 11/22/18 01/12/22 (Accu-Chek Compact Plus Care kit) cholecalciferol (vitamin D3) 50 50 mcg PO DAILY 04/09/21 05/15/22 mcg (2,000 unit) capsule zinc acetate 25 mg (zinc) capsule 25 mg PO DAILY 04/09/21 05/15/22 fluticasone propionate 50 2 spray intranasal DAILY 05/15/22 05/15/22 mcg/actuation nasal spray,suspension glipizide 5 mg tablet, extended 5 mg PO QPM 05/15/22 05/15/22 release 24 hr hydrochlorothiazide 25 mg tablet 25 mg PO QAM 05/15/22 05/15/22 metformin 500 mg tablet,extended 1,500 mg PO DAILY 05/15/22 05/15/22 release 24 hr Previous Rx's Medication Instructions Recorded lancets 28 gauge (FreeStyle #200 ea 01/06/20 Lancets) atorvastatin 40 mg tablet 40 mg PO QPM 90 days #90 tabs 05/20/21 blood sugar diagnostic (FreeStyle #100 ea 09/15/21 Lite Strips) carvedilol 25 mg tablet 25 mg PO BID #180 tabs 09/29/21 losartan 100 mg tablet 100 mg PO DAILY #90 tabs 09/30/21 tadalafil 5 mg tablet 5 mg PO DAILY #90 tabs 11/05/21 ipratropium bromide 21 mcg (0.03 2 spray intranasal DAILY #30 mL 12/23/21 %) nasal spray famotidine 20 mg tablet 20 mg PO BID PRN heartburn #180 02/17/22 tabs Results & Data (ED) Vital Signs Vital Signs - 24 hr 05/15/22 08:50 05/15/22 09:16 05/15/22 09:12 Temperature 36.8 C Temperature Source Temporal Artery Scan Pulse Rate 71 73 69 Pulse Rate from SpO2 Sensor 69 Respiratory Rate 18 16 Blood Pressure 217/110 H Blood Pressure Mean 145 Pulse Oximetry 96 97 Oxygen Delivery Method Room Air Sepsis Recent Fever Within 48 Hours No Sepsis New/Unexplained Change in Mental Status No Sepsis Action Taken by Nursing No Action Required 05/15/22 09:30 05/15/22 09:30 05/15/22 10:00 Temperature Temperature Source Pulse Rate 73 Pulse Rate from SpO2 Sensor 71 Respiratory Rate 13 Blood Pressure 190/104 H 191/102 H Blood Pressure Mean 132 131 Pulse Oximetry 94 Oxygen Delivery Method Sepsis Recent Fever Within 48 Hours Sepsis New/Unexplained Change in Mental Status Sepsis Action Taken by Nursing 05/15/22 10:00 05/15/22 11:00 05/15/22 11:00 Temperature Temperature Source Pulse Rate 72 75 Pulse Rate from SpO2 Sensor 73 70 Respiratory Rate 15 13 Blood Pressure 186/103 H Blood Pressure Mean 130 Pulse Oximetry 95 94 Oxygen Delivery Method Sepsis Recent Fever Within 48 Hours Sepsis New/Unexplained Change in Mental Status Sepsis Action Taken by Nursing 05/15/22 11:40 05/15/22 11:40 05/15/22 11:59 Temperature Temperature Source Pulse Rate 70 75 Pulse Rate from SpO2 Sensor 70 74 Respiratory Rate 16 15 Blood Pressure 181/99 H Blood Pressure Mean 126 Pulse Oximetry 95 95 Oxygen Delivery Method Sepsis Recent Fever Within 48 Hours Sepsis New/Unexplained Change in Mental Status Sepsis Action Taken by Nursing 05/15/22 11:59 05/15/22 12:00 05/15/22 12:00 Temperature Temperature Source Pulse Rate 71 Pulse Rate from SpO2 Sensor 70 Respiratory Rate 17 Blood Pressure 183/95 H 197/96 H Blood Pressure Mean 124 129 Pulse Oximetry 96 Oxygen Delivery Method Sepsis Recent Fever Within 48 Hours Sepsis New/Unexplained Change in Mental Status Sepsis Action Taken by Nursing 05/15/22 12:30 05/15/22 12:30 05/15/22 13:32 Temperature Temperature Source Pulse Rate 65 63 Pulse Rate from SpO2 Sensor 68 Respiratory Rate 13 Blood Pressure 200/102 H Blood Pressure Mean 134 Pulse Oximetry 96 Oxygen Delivery Method Sepsis Recent Fever Within 48 Hours Sepsis New/Unexplained Change in Mental Status Sepsis Action Taken by Nursing 05/15/22 13:03 05/15/22 13:03 05/15/22 13:22 Temperature Temperature Source Pulse Rate 71 73 Pulse Rate from SpO2 Sensor 70 Respiratory Rate 15 18 Blood Pressure 207/99 H Blood Pressure Mean 135 Pulse Oximetry 96 Oxygen Delivery Method Sepsis Recent Fever Within 48 Hours Sepsis New/Unexplained Change in Mental Status Sepsis Action Taken by Nursing 05/15/22 13:22 05/15/22 13:25 05/15/22 13:30 Temperature Temperature Source Pulse Rate 67 Pulse Rate from SpO2 Sensor 66 Respiratory Rate 18 Blood Pressure 210/104 H 214/109 H Blood Pressure Mean 139 144 Pulse Oximetry 96 Oxygen Delivery Method Sepsis Recent Fever Within 48 Hours Sepsis New/Unexplained Change in Mental Status Sepsis Action Taken by Nursing Laboratory Data 05/15/22 09:18 05/15/22 09:18 Lab Results 05/15/22 05/15/22 05/15/22 Range/Units 09:15 09:18 09:18 WBC 5.18 (4.8-10.8) K/ul RBC 4.61 L (4.70-6.10) M/uL Hgb 13.9 L (14.0-18.0) g/dl Hct 39.7 L (42.0-52.0) % MCV 86.1 (80.0-100.0) fL MCH 30.2 (25.0-34.0) pg MCHC 35.0 (32.0-36.0) g/dL RDW Std Deviation 38.8 (36.4-46.3) fL RDW Coeff of Dorita 12.5 (11.5-14.5) % Plt Count 158 (130-400) K/uL MPV 9.6 (9.4-12.4) fL Immature Gran % (Auto) 0.4 % Neut % (Auto) 54.6 % Lymph % (Auto) 30.3 % [place] % (Auto) 10.4 % Eos % (Auto) 3.5 % Baso % (Auto) 0.8 % Neut # (Auto) 2.83 (1.40-6.50) K/uL Lymph # (Auto) 1.57 (1.2-3.4) K/uL [place] # (Auto) 0.54 (0.11-0.59) K/uL Eos # (Auto) 0.18 (0-0.50) K/uL Baso # (Auto) 0.04 (0-0.2) K/uL Immature Gran # (Auto) 0.02 (0.01-0.20) K/uL ESR (0-20) mm/hr PT 11.2 (9.0-12.0) Seconds INR 1.1 (0.9-1.1) APTT 28.5 (21.0-31.0) Seconds PTT Ratio 1.0 Sodium (136-145) mmol/L Potassium (3.5-5.1) mmol/L Chloride (98-107) mmol/L Carbon Dioxide (21-32) mmol/L Anion Gap (3-11) BUN (6-23) mg/dl Creatinine (0.6-1.4) mg/dl Est Cr Clr Drug Dosing ml/min Est GFR ( Amer) ml/min Est GFR (Non-Af Amer) ml/min BUN/Creatinine Ratio (10-20) Glucose (70-99(Fasting)) mg/dl POC Glucose 193 H (70-99) mg/dl Calcium (8.5-10.1) mg/dl Magnesium (1.7-2.4) mg/dl Total Bilirubin (0.2-1.0) mg/dl AST (13-39) U/L ALT (7-52) U/L Alkaline Phosphatase (34-104) U/L Troponin I High Sens (0-20) pg/ml C-Reactive Protein (0-0.5) mg/dl Total Protein (6.0-8.3) gm/dl Albumin (3.4-5.0) gm/dl Globulin (2.5-4.0) gm/dl Albumin/Globulin Ratio (0.9-2) SARS-CoV-2, RNA, NAAT (NEGATIVE) 05/15/22 05/15/22 05/15/22 Range/Units 09:18 09:18 09:29 WBC (4.8-10.8) K/ul RBC (4.70-6.10) M/uL Hgb (14.0-18.0) g/dl Hct (42.0-52.0) % MCV (80.0-100.0) fL MCH (25.0-34.0) pg MCHC (32.0-36.0) g/dL RDW Std Deviation (36.4-46.3) fL RDW Coeff of Dorita (11.5-14.5) % Plt Count (130-400) K/uL MPV (9.4-12.4) fL Immature Gran % (Auto) % Neut % (Auto) % Lymph % (Auto) % [place] % (Auto) % Eos % (Auto) % Baso % (Auto) % Neut # (Auto) (1.40-6.50) K/uL Lymph # (Auto) (1.2-3.4) K/uL [place] # (Auto) (0.11-0.59) K/uL Eos # (Auto) (0-0.50) K/uL Baso # (Auto) (0-0.2) K/uL Immature Gran # (Auto) (0.01-0.20) K/uL ESR 8 (0-20) mm/hr PT (9.0-12.0) Seconds INR (0.9-1.1) APTT (21.0-31.0) Seconds PTT Ratio Sodium 138 (136-145) mmol/L Potassium 4.1 (3.5-5.1) mmol/L Chloride 104 (98-107) mmol/L Carbon Dioxide 26 (21-32) mmol/L Anion Gap 8 (3-11) BUN 16 (6-23) mg/dl Creatinine 1.10 (0.6-1.4) mg/dl Est Cr Clr Drug Dosing 55.1 ml/min Est GFR ( Amer) 76.2 ml/min Est GFR (Non-Af Amer) 65.8 ml/min BUN/Creatinine Ratio 14.5 (10-20) Glucose 206 H (70-99(Fasting)) mg/dl POC Glucose (70-99) mg/dl Calcium 9.5 (8.5-10.1) mg/dl Magnesium 1.8 (1.7-2.4) mg/dl Total Bilirubin 0.6 (0.2-1.0) mg/dl AST 14 (13-39) U/L ALT 19 (7-52) U/L Alkaline Phosphatase 82 (34-104) U/L Troponin I High Sens 6.8 (0-20) pg/ml C-Reactive Protein < 0.50 (0-0.5) mg/dl Total Protein 7.1 (6.0-8.3) gm/dl Albumin 4.3 (3.4-5.0) gm/dl Globulin 2.8 (2.5-4.0) gm/dl Albumin/Globulin Ratio 1.5 (0.9-2) SARS-CoV-2, RNA, NAAT NEGATIVE (NEGATIVE) Administered Medications Discontinued Medications Ioversol (Optiray 320 500ml) 120 ml IV ONCE ONE Stop: 05/15/22 10:31 Last Admin: 05/15/22 10:30 Dose: 120 ml Documented By: CLAUDINE Ketorolac Tromethamine (Ketorolac Tromethamine 15 Mg/Ml Vial) 10 mg IV NOW STA Stop: 05/15/22 12:08 Last Admin: 05/15/22 12:12 Dose: 10 mg Documented By: CESAR Labetalol HCl (Labetalol Hcl Iv 5 Mg/Ml 20ml) 5 mg IV NOW STA Stop: 05/15/22 14:08 Last Admin: 05/15/22 14:12 Dose: 5 mg Documented By: DULCE Co-signed By: ELISA Imaging Data Radiologist's Impression: Head CT 05/15/22 09:[address], HEAD & NECK CTA HISTORY: Headache. vision changes TECHNIQUE: Noncontrast CT images of the head were performed. Multiaxial CT image s of the head were performed following the intravenous administration of contrast to evaluate the major cerebral vessels. Multiaxial CT images of the neck were also performed following the intravenous administration of contrast to evaluate the major cervical vessels. Maximum intensity projection images were also obtained. A dose lowering technique was utilized adhering to the principles of ALARA. COMPARISON: None. FINDINGS: NONCONTRAST HEAD CT: Small retention cyst within the left maxillary sinus and mild mucosal thickening within the left sphenoid sinus. The mastoid air cells are clear. The calvarium and skull base are intact. Prior bilateral lens replacement. Otherwise, the orbits are unremarkable. The ventricles and sulci are within normal limits. There is no mass, hematoma, midline shift, or acute infarct. HEAD CTA: Visualized distal vertebral arteries, and basilar artery are widely patent. There is no significant stenosis, occlusion, or aneurysm seen within the bilateral ACAs, MCAs, or valve tester. The major dural venous sinuses appear patent. Mild multifocal narrowing within the left carotid siphon due to the moderate calcified plaque. No significant stenosis within the right intracranial internal carotid artery which also demonstrates moderate calcified plaque. There is a hypoplastic left A1 segment. NECK CTA: The aortic arch and proximal great vessels are widely patent. There is no significant stenosis, occlusion, or dissection identified within the bilateral common carotid, internal carotid, or vertebral arteries. IMPRESSION: 1. Mild multifocal narrowing within the left carotid siphon due to the atherosclerotic plaque. Otherwise, no significant stenosis, occlusion, or aneurysm within the [place]. 2. No significant stenosis, occlusion, or dissection identified within the carotid or vertebral arteries.. 3. No acute infarct or intracranial hemorrhage. ACT 112: Negative or not required by law. Electronically signed by: Miguel Romero M.D. 05/15/2022 10:51 AM Head CTA 05/15/22 09:[address], HEAD & NECK CTA HISTORY: Headache. vision changes TECHNIQUE: Noncontrast CT images of the head were performed. Multiaxial CT images of the head were performed following the intravenous administration of contrast to evaluate the major cerebral vessels. Multiaxial CT images of the neck were also performed following the intravenous administration of contrast to evaluate the major cervical vessels. Maximum intensity projection images were also obtained. A dose lowering technique was utilized adhering to the principles of ALARA. COMPARISON: None. FINDINGS: NONCONTRAST HEAD CT: Small retention cyst within the left maxillary sinus and mild mucosal thickening within the left sphenoid sinus. The mastoid air cells are clear. The calvarium and skull base are intact. Prior bilateral lens replacement. Otherwise, the orbits are unremarkable. The ventricles and sulci are within normal limits. There is no mass, hematoma, midline shift, or acute infarct. HEAD CTA: Visualized distal vertebral arteries, and basilar artery are widely p atent. There is no significant stenosis, occlusion, or aneurysm seen within the bilateral ACAs, MCAs, or valve tester. The major dural venous sinuses appear patent. Mild multifocal narrowing within the left carotid siphon due to the moderate calcified plaque. No significant stenosis within the right intracranial internal carotid artery which also demonstrates moderate calcified plaque. There is a hypoplastic left A1 segment. NECK CTA: The aortic arch and proximal great vessels are widely patent. There is no significant stenosis, occlusion, or dissection identified within the bilateral common carotid, internal carotid, or vertebral arteries. IMPRESSION: 1. Mild multifocal narrowing within the left carotid siphon due to the atheroscl erotic plaque. Otherwise, no significant stenosis, occlusion, or aneurysm within the [place]. 2. No significant stenosis, occlusion, or dissection identified within the carotid or vertebral arteries.. 3. No acute infarct or intracranial hemorrhage. ACT 112: Negative or not required by law. Electronically signed by: Miguel Romero M.D. 05/15/2022 10:51 AM Neck CTA 05/15/22 09:[address], HEAD & NECK CTA HISTORY: Headache. vision changes TECHNIQUE: Noncontrast CT images of the head were performed. Multiaxial CT images of the head were performed following the intravenous administration of contrast to evaluate the major cerebral vessels. Multiaxial CT images of the neck were also performed following the intravenous administration of contrast to evaluate the major cervical vessels. Maximum intensity projection images were also obtained. A dose lowering technique was utilized adhering to the principles of ALARA. COMPARISON: None. FINDINGS: NONCONTRAST HEAD CT: Small retention cyst within the left maxillary sinus and mild mucosal thickening within the left sphenoid sinus. The mastoid air cells are clear. The calvarium and skull base are intact. Prior bilateral lens replacement. Otherwise, the orbits are unremarkable. The ventricles and sulci ar e within normal limits. There is no mass, hematoma, midline shift, or acute infarct. HEAD CTA: Visualized distal vertebral arteries, and basilar artery are widely patent. There is no significant stenosis, occlusion, or aneurysm seen within the bilateral ACAs, MCAs, or valve tester. The major dural venous sinuses appear patent. Mild multifocal narrowing within the left carotid siphon due to the moderate calcified plaque. No significant stenosis within the right intracranial internal carotid artery which also demonstrates moderate calcified plaque. There is a hypoplastic left A1 segment. NECK CTA: The aortic arch and proximal great vessels are widely patent. There is no significant stenosis, occlusion, or dissection identified within the bilateral common carotid, internal carotid, or vertebral arteries. IMPRESSION: 1. Mild multifocal narrowing within the left carotid siphon due to the atherosclerotic plaque. Otherwise, no significant stenosis, occlusion, or aneurysm within the [place]. 2. No significant stenosis, occlusion, or dissection identified within the carotid or vertebral arteries.. 3. No acute infarct or intracranial hemorrhage. ACT 112: Negative or not required by law. Electronically signed by: Miguel Romero M.D. 05/15/2022 10:51 AM Chest X-Ray 05/15/22 09:08 XR chest 1V portable HISTORY: L neck pain, vision changes, HTN COMPARISON: Chest 10/13/2018. FINDINGS: No pneumothorax. No pleural effusions. Bibasilar linear densities persist and favor subsegmental atelectasis or scarring. Otherwise, the lungs are clear. The heart is normal in size. There are calcifications within the aortic knob. IMPRESSION: No significant change compared to the prior study. No acute process. ACT 112: Negative or not required by law. Electronically signed by: Miguel Romero M.D. 05/15/2022 10:16 AM Discharge Plan Visit Data Chief Complaint: Headache Stated Complaint: HEADACHE, BLURRED VISION ED Provider: Khris Bai Discharge Problem: Binocular vision disorder with diplopia, Headache, HTN (hypertension) Patient Disposition: Admitted As Inpatient Discharge Instructions Interventions: ED Discharge Assessment Last Done: 05/15/22 15:11
[2022-05-15 09:34] LABS: Basophils # (auto) 0.04 K/uL (0-0.2); Basophils % (auto) 0.8 %; Eosinophils # (auto) 0.18 K/uL (0-0.50); Eosinophils % (auto) 3.5 %; Hematocrit (blood only) 39.7 % (42.0-52.0); Hemoglobin 13.9 g/dl (14.0-18.0); Immature Granulocytes # (auto) 0.02 K/uL (0.01-0.20); Immature Granulocytes % (auto) 0.4 %; Lymphocytes # (auto) 1.57 K/uL (1.2-3.4); Lymphocytes % (auto) 30.3 %; Mean Corpuscular Hemoglobin 30.2 pg (25.0-34.0); Mean Corpuscular Volume 86.1 fL (80.0-100.0); Mean Platelet Volume 9.6 fL (9.4-12.4); Monocytes # (auto) 0.54 K/uL (0.11-0.59); Monocytes % (auto) 10.4 %; Neutrophils # (auto) 2.83 K/uL (1.40-6.50); Neutrophils % (auto) 54.6 %; Platelet Count 158 K/uL (130-400); RDW Coefficient of Variation 12.5 % (11.5-14.5); RDW Standard Deviation 38.8 fL (36.4-46.3); Red Blood Count 4.61 M/uL (4.70-6.10); White Blood Count 5.18 K/ul (4.8-10.8)
[2022-05-15 09:51] LABS: Alanine Aminotransferase 19 U/L (7-52); Albumin Globulin Ratio 1.5 (0.9-2); Albumin Level 4.3 gm/dl (3.4-5.0); Alkaline Phosphatase 82 U/L (34-104); Anion Gap 8 (3-11); Aspartate Aminotransferase 14 U/L (13-39); BUN Creatinine Ratio 14.5 (10-20); Bilirubin,Total 0.6 mg/dl (0.2-1.0); Blood Urea Nitrogen 16 mg/dl (6-23); C Reactive Protein < 0.50 mg/dl (0-0.5); Calcium 9.5 mg/dl (8.5-10.1); Carbon Dioxide 26 mmol/L (21-32); Chloride 104 mmol/L (98-107); Creatinine Clr Calc Pharmacy 55.1 ml/min; Est GFR (African American) 76.2 ml/min; Est GFR (Non-African American) 65.8 ml/min; Globulin 2.8 gm/dl (2.5-4.0); Glucose 206 mg/dl (70-99(Fasting)); Magnesium 1.8 mg/dl (1.7-2.4); Potassium 4.1 mmol/L (3.5-5.1); Sodium 138 mmol/L (136-145); Total Protein 7.1 gm/dl (6.0-8.3)
[2022-05-15 09:57] LABS: Troponin I High Sensitivity 6.8 pg/ml (0-20)
[2022-05-15 10:02] LABS: INR 1.1 (0.9-1.1); Partial Thromboplastin Time 28.5 Seconds (21.0-31.0); Prothrombin Time 11.2 Seconds (9.0-12.0)
--- NOTE | 2022-05-15 10:18 | XRay Report ---
XR chest 1V portable HISTORY: L neck pain, vision changes, HTN COMPARISON: Chest 10/13/2018. FINDINGS: No pneumothorax. No pleural effusions. Bibasilar linear densities persist and favor subsegm ental atelectasis or scarring. Otherwise, the lungs are clear. The heart is normal in size. There are calcifications within the aortic knob. IMPRESSION: No significant change compared to the prior study. No acute process. ACT 112: Negative or not required by law. Electronically signed by: Miguel Romero M.D. 05/15/2022 10:16 AM
[2022-05-15] MEDS ORDERED: OPTIRAY 320 500ml IV ONE (10:30)
--- NOTE | 2022-05-15 10:33 | Electrocardiogram Report ---
Test Reason : Blood Pressure : / mmHG Vent. Rate : 069 BPM Atrial Rate : 069 BPM P-R Int : 000 ms QRS Dur : 088 ms QT Int : 402 ms P-R-T Axes : 000 -25 010 degrees QTc Int : 430 ms Normal sinus rhythm Confirmed by Mark Wise ([id number] on 05/15/2022 10:33:21 AM Referred By: REFERRED SELF Confirmed By:Selwyn Wise
--- NOTE | 2022-05-15 10:53 | CT Scan Report ---
NONCONTRAST HEAD CT, HEAD & NECK CTA HISTORY: Headache. vision changes TECHNIQUE: Noncontrast CT images of the head were performed. Multiaxial CT images of the head were pe rformed following the intravenous administration of contrast to evaluate the major cerebral vessels. Multiaxial CT images of the neck were also performed following the intravenous administration of cont rast to evaluate the major cervical vessels. Maximum intensity projection images were also obtained. A dose lowering technique was utilized adhering to the principles of ALARA. COMPARISON: None. FINDINGS: NONCONTRAST HEAD CT: Small retention cyst within the left maxillary sinus and mild mucosal thickening within the left sphenoid sinus. The mastoid air cells are clear. The calvarium and skull base are in tact. Prior bilateral lens replacement. Otherwise, the orbits are unremarkable. The ventricles and valera lci are within normal limits. There is no mass, hematoma, midline shift, or acute infarct. HEAD CTA: Visualized distal vertebral arteries, and basilar artery are widely patent. There is no sig nificant stenosis, occlusion, or aneurysm seen within the bilateral ACAs, MCAs, or kosher butcher. The major du ral venous sinuses appear patent. Mild multifocal narrowing within the left carotid siphon due to the moderate calcified plaque. No significant stenosis within the right intracranial internal carotid ar andrew which also demonstrates moderate calcified plaque. There is a hypoplastic left A1 segment. NECK CTA: The aortic arch and proximal great vessels are widely patent. There is no significant sten osis, occlusion, or dissection identified within the bilateral common carotid, internal carotid, or v ertebral arteries. IMPRESSION: 1. Mild multifocal narrowing within the left carotid siphon due to the atherosclerotic plaque. Otherw ise, no significant stenosis, occlusion, or aneurysm within the [place]. 2. No significant stenosis, occlusion, or dissection identified within the carotid or vertebral arter ies.. 3. No acute infarct or intracranial hemorrhage. ACT 112: Negative or not required by law. Electronically signed by: Miguel Romero M.D. 05/15/2022 10:51 AM
--- NOTE | 2022-05-15 10:53 | CT Scan Report ---
NONCONTRAST HEAD CT, HEAD & NECK CTA HISTORY: Headache. vision changes TECHNIQUE: Noncontrast CT images of the head were performed. Multiaxial CT images of the head were pe rformed following the intravenous administration of contrast to evaluate the major cerebral vessels. Multiaxial CT images of the neck were also performed following the intravenous administration of cont rast to evaluate the major cervical vessels. Maximum intensity projection images were also obtained. A dose lowering technique was utilized adhering to the principles of ALARA. COMPARISON: None. FINDINGS: NONCONTRAST HEAD CT: Small retention cyst within the left maxillary sinus and mild mucosal thickening within the left sphenoid sinus. The mastoid air cells are clear. The calvarium and skull base are in tact. Prior bilateral lens replacement. Otherwise, the orbits are unremarkable. The ventricles and valera lci are within normal limits. There is no mass, hematoma, midline shift, or acute infarct. HEAD CTA: Visualized distal vertebral arteries, and basilar artery are widely patent. There is no sig nificant stenosis, occlusion, or aneurysm seen within the bilateral ACAs, MCAs, or k 9 handler/ deputy. The major du ral venous sinuses appear patent. Mild multifocal narrowing within the left carotid siphon due to the moderate calcified plaque. No significant stenosis within the right intracranial internal carotid ar andrew which also demonstrates moderate calcified plaque. There is a hypoplastic left A1 segment. NECK CTA: The aortic arch and proximal great vessels are widely patent. There is no significant sten osis, occlusion, or dissection identified within the bilateral common carotid, internal carotid, or v ertebral arteries. IMPRESSION: 1. Mild multifocal narrowing within the left carotid siphon due to the atherosclerotic plaque. Otherw ise, no significant stenosis, occlusion, or aneurysm within the [place]. 2. No significant stenosis, occlusion, or dissection identified within the carotid or vertebral arter ies.. 3. No acute infarct or intracranial hemorrhage. ACT 112: Negative or not required by law. Electronically signed by: Miguel Romero M.D. 05/15/2022 10:51 AM
--- NOTE | 2022-05-15 10:53 | CT Scan Report ---
NONCONTRAST HEAD CT, HEAD & NECK CTA HISTORY: Headache. vision changes TECHNIQUE: Noncontrast CT images of the head were performed. Multiaxial CT images of the head were pe rformed following the intravenous administration of contrast to evaluate the major cerebral vessels. Multiaxial CT images of the neck were also performed following the intravenous administration of cont rast to evaluate the major cervical vessels. Maximum intensity projection images were also obtained. A dose lowering technique was utilized adhering to the principles of ALARA. COMPARISON: None. FINDINGS: NONCONTRAST HEAD CT: Small retention cyst within the left maxillary sinus and mild mucosal thickening within the left sphenoid sinus. The mastoid air cells are clear. The calvarium and skull base are in tact. Prior bilateral lens replacement. Otherwise, the orbits are unremarkable. The ventricles and valera lci are within normal limits. There is no mass, hematoma, midline shift, or acute infarct. HEAD CTA: Visualized distal vertebral arteries, and basilar artery are widely patent. There is no sig nificant stenosis, occlusion, or aneurysm seen within the bilateral ACAs, MCAs, or regulatory compliance coordinator. The major du ral venous sinuses appear patent. Mild multifocal narrowing within the left carotid siphon due to the moderate calcified plaque. No significant stenosis within the right intracranial internal carotid ar andrew which also demonstrates moderate calcified plaque. There is a hypoplastic left A1 segment. NECK CTA: The aortic arch and proximal great vessels are widely patent. There is no significant sten osis, occlusion, or dissection identified within the bilateral common carotid, internal carotid, or v ertebral arteries. IMPRESSION: 1. Mild multifocal narrowing within the left carotid siphon due to the atherosclerotic plaque. Otherw ise, no significant stenosis, occlusion, or aneurysm within the [place]. 2. No significant stenosis, occlusion, or dissection identified within the carotid or vertebral arter ies.. 3. No acute infarct or intracranial hemorrhage. ACT 112: Negative or not required by law. Electronically signed by: Miguel Romero M.D. 05/15/2022 10:51 AM
[2022-05-15] MEDS ORDERED: KETOROLAC TROMETHAMINE 15 MG/ML VIAL IV STA (12:07)
--- NOTE | 2022-05-15 12:15 | History & Physical Report ---
Date of Service May 15, 2022 Assessment & Plan (1) Headache: Plan: 72 year old male with a past medical history HTN, CAD, DM Type II, Hypercholesterolemia and cervical radiculopathy who presented to ED 05/15/22 with complaints of persistent left sided Headache x2 days and now with diplopia since 10PM last night. Admitting patient to PCU with stroke protocol. - MRI head - Dr Zapata discussed case with Neurology - Dr Tong - Neuro consult tomorrow - Check Lyme titre - AM labs (2) Binocular vision disorder with diplopia: Plan: Binocular diplopia resolves with upward gaze CTA - Mild multifocal narrowing within the left carotid siphon due to the atherosclerotic plaque. Otherwise, no significant stenosis, occlusion, or aneurysm within the [place]. No significant stenosis, occlusion, or dissection identified within the carotid or vertebral arteries. No acute infarct or intracranial hemorrhage. No evidence of press on CT imaging - Stroke precautions - Await MRI results (3) HTN (hypertension): Plan: - Add some Labetalol 5mg IV STAT - Continue home medications (4) Hypercholesterolemia: Plan: - Continue Atorvastatin 40mg q hs (5) Type 2 diabetes mellitus with microalbuminuria: Plan: - Hold all po diabetic medications - Insulin sliding scale Plan Code Status DNR/DNI SCDs Continue ASA 81 mg daily Continue Statin 40mg qhs History of Present Illness Chief Complaint: Headache and diplopia Primary Care Provider: Vivian Villatoro MD Drake Kennedy is a 72 year old male with a past medical history HTN, CAD, DM Type II, Hypercholesterolemia and cervical radiculopathy who presented to ED 05/15/22 with complaints of persistent left sided Headache x2 days and now with diplopia since 10PM last night. Patient states he has history of cervical radiculopathy and at times has neck pain that will radiate to his bottom of his skull, so when his headache began on Monday it was in the left side of his head and neck and at first he attributed to his cervical problems. He states he took some Tylenol and only had minimal relief. Then last evening he noticed if he looked straight ahead his vision was "off" He thought at first it was his glasses. Then he realized if he closed one eye his vision was normal in each eye alone but he had binocular diplopia. He tells me that if he looks up in the air he has normal vision. The diplopia is only straight forward and when looking downward. He denies any injury, trauma, loss of vision, photophobia, vomiting. He states he has had mild nausea, chills and anorexia the past 2 days. He denies any fevers. He denies any skin rashes, lesions, myalgias or arthralgias. Patient tells me that his diplopia resolves with upward gaze. The diplopia continues in all other filed of visions. Patient states that he took his HTN medications this AM. BPs consistently >200 systolically while here in ED. Allergies Allergy/AdvReac Type Severity Reaction Status Date / Time No Known Drug Allergies Allergy Unknown . Verified 05/15/22 13:23 Home Medications Medication Instructions Recorded Confirmed Type aspirin 81 mg tablet,delayed 81 mg PO QPM 10/16/18 05/15/22 History release blood-glucose meter, drum-type #1 ea 11/22/18 01/12/22 History (Accu-Chek Compact Plus Care kit) lancets 28 gauge (FreeStyle #200 ea 01/06/20 01/12/22 Rx Lancets) cholecalciferol (vitamin D3) 50 50 mcg PO DAILY 04/09/21 05/15/22 History mcg (2,000 unit) capsule zinc acetate 25 mg (zinc) capsule 25 mg PO DAILY 04/09/21 05/15/22 History atorvastatin 40 mg tablet 40 mg PO QPM 90 days #90 tabs 05/20/21 05/15/22 Rx blood sugar diagnostic (FreeStyle #100 ea 09/15/21 01/12/22 Rx Lite Strips) carvedilol 25 mg tablet 25 mg PO BID #180 tabs 09/29/21 05/15/22 Rx losartan 100 mg tablet 100 mg PO DAILY #90 tabs 09/30/21 05/15/22 Rx tadalafil 5 mg tablet 5 mg PO DAILY #90 tabs 11/05/21 05/15/22 Rx ipratropium bromide 21 mcg (0.03 2 spray intranasal DAILY #30 mL 12/23/21 05/15/22 Rx %) nasal spray famotidine 20 mg tablet 20 mg PO BID PRN heartburn #180 02/17/22 05/15/22 Rx tabs fluticasone propionate 50 2 spray intranasal DAILY 05/15/22 05/15/22 History mcg/actuation nasal spray,suspension glipizide 5 mg tablet, extended 5 mg PO QPM 05/15/22 05/15/22 History release 24 hr hydrochlorothiazide 25 mg tablet 25 mg PO QAM 05/15/22 05/15/22 History metformin 500 mg tablet,extended 1,500 mg PO DAILY 05/15/22 05/15/22 History release 24 hr Past Med/Surg History Medical History Actinic keratosis Anxiety Aortic regurgitation Mild AR/ on echo 2017 & cath 2018 Arthritis of lumbar spine CAD in [place] artery Cataract Cervical radiculopathy Degenerative disc disease CERVICAL SPINE Erectile dysfunction GERD (gastroesophageal reflux disease) Hypercholesterolemia Male erectile disorder of organic origin Nephrolithiasis Osteoarthritis Primary hypertension Rhabdomyolysis Tubular adenoma of colon (11/25/16) recheck 5 years, Dr. Stevens Type 2 diabetes mellitus with microalbuminuria White coat syndrome with hypertension Surgical History History of cardiac cath History of cataract surgery LEFT 01/22/2018. 4mg versed. no issues. History of colonoscopy (11/25/16) tubular adenoma and hyperplastic polyp removed, recheck 5 years, Dr. Stevens History of esophagogastroduodenoscopy (EGD) History of heart artery stent History of tonsillectomy Family History Father Family history of diabetes mellitus Coronary heart disease Stroke Depression Diabetes Heart disease Myocardial infarction Mother Coronary heart disease Cancer Breast cancer Other Rheumatoid arthritis Denies family history of Sudden SIDS (sudden infant syndrome) Ovarian cancer Prostate cancer Deep vein thrombosis Osteoporosis Dyslipidemia Cerebral aneurysm Alzheimer disease Bipolar disorder Clotting disorder Crohn's disease Dementia Kidney disease Osteoarthritis Schizophrenia Congenital kidney disease Gestational diabetes Lung cancer COPD (chronic obstructive pulmonary disease) Colorectal cancer Pulmonary embolism Lung disease Hypertension Ulcerative colitis Colonic polyp Asthma Cystic kidney disease Social History Smoking Status: Never smoker Second Hand Exposure: No; Hx Alcohol Use: No Hx Substance Use: No Preferred Language: Portuguese Communication Ability: Effective Visual Impairment: Partially Limited Hearing Ability: Normal Management Supervisor Required: No Beliefs That Will Affect Care: None marital status: Current Living Situation: Spouse current occupational status: retired current occupation: [employer] Feels Safe at Home: Yes Childhood Exposure to Second-Hand Smoke: Yes caffeine: No during the past year weight has: remained stable Dental Care, Regularly: Yes Physical Activity Frequency: 1-2 Times per Week Seatbelt Use: always Sunscreen Use: No Assistive Devices: None Review of Systems Constitutional: + chills, + fatigue and + anorexia; no fever, no body aches, no weakness and no weight loss Eyes: + corrective lenses and + diplopia; no blind spots, no discharge, no eye pain, no loss of peripheral vision, no photophobia, not seeing flashes, no spots in vision and no tunnel vision Ear, Nose, Mouth, Throat: no ear pain, no ear trauma, no tinnitus, no hearing loss, no dizziness, no nasal congestion and no post nasal drip Respiratory: no cough, no chest congestion, no dyspnea and no hemoptysis Cardiovascular: no chest pain, no dyspnea and no edema Gastrointestinal: + nausea; no abdominal pain, no early satiety and no vomiting Musculoskeletal: as per Subjective / HPI and + neck pain Integumentary: no rash, no lesions and no new lesions Neurologic: + radiating pain and + headache(s); no falls, no localized weakness, no paralysis, no loss of sensation, no numbness, no syncope and no confusion Psychiatric: no depression, no abnormal sleep pattern, no anxiety and no confusion Allergy / Immunological: no cough, no dyspnea and no rash Physical Exam Constitutional: elevated blood pressure saturating 96% on RA, Heart rate 70s, respirations 18-20 Eyes: PERRL, conjunctivae normal, anicteric sclerae normal visual marino by confrontation and EOM intact bilaterally; no fundoscopic abnormality ENMT: external ear and nose normal, oropharynx normal Neck: trachea midline, no thyromegaly Respiratory: normal respiratory effort, lungs clear to auscultation Cardiovascular: RRR, no murmur, no edema Gastrointestinal (Abdomen): normal bowel sounds, soft, nontender, no hepatosplenomegaly Musculoskeletal: no cyanosis or clubbing, extremities motor strength 5/5 Skin: no rashes, warm and dry Neurologic: patellar DTR's 2+ bilat, sensation intact and PERRL, EOMI, accommodation nl, no face palsy, no dysarthria Cranial Nerves: PERRL, normal accommodation, EOM intact bilaterally, normal facial strength, tongue midline, normal gag reflex, normal hearing, able to rotate head bilaterally, able to elevate shoulders bilaterally, no nystagmus and symmetric palate elevation Psychiatric: A+Ox3, euthymic affect Results & Data Results & Data Vital Signs (Past 12 Hours) Vital Signs Temp Pulse Resp BP Pulse Ox O2 Del Method 05/15/22 09:16 73 05/15/22 08:50 36.8 C 71 18 217/110 H 96 Room Air Laboratory Results Reviewed labs - ESR - 8, CRP - <0.5, BMP normal except glucose 206, Mg 1.8, Troponin 6.8, CBC normal, Covid negative Lipid panel from 11/02/2021 Chol 124, TG 133, HDL 37, LDL 60. Diagnostic Findings Head CT 05/15/22 09:[address], HEAD & NECK CTA HISTORY: Headache. vision changes TECHNIQUE: Noncontrast CT images of the head were performed. Multiaxial CT images of the head were performed following the intravenous administration of contrast to evaluate the major cerebral vessels. Multiaxial CT images of the neck were also performed following the intravenous administration of contrast to evaluate the major cervical vessels. Maximum intensity projection images were also obtained. A dose lowering technique was utilized adhering to the principles of ALARA. COMPARISON: None. FINDINGS: NONCONTRAST HEAD CT: Small retention cyst within the left maxillary sinus and mild mucosal thickening within the left sphenoid sinus. The mastoid air cells are clear. The calvarium and skull base are intact. Prior bilateral lens replacement. Otherwise, the orbits are unremarkable. The ventricles and sulci are within normal limits. There is no mass, hematoma, midline shift, or acute infarct. HEAD CTA: Visualized distal vertebral arteries, and basilar artery are widely patent. 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 The major dural venous sinuses appear patent. Mild multifocal narrowing within the left carotid siphon due to the moderate calcified plaque. No significant stenosis within the right intracranial internal carotid artery which also demonstrates moderate calcified plaque. There is a hypoplastic left A1 segment. NECK CTA: The aortic arch and proximal great vessels are widely patent. There is no significant stenosis, occlusion, or dissection identified within the bilateral common carotid, internal carotid, or vertebral arteries. IMPRESSION: 1. Mild multifocal narrowing within the left carotid siphon due to the atherosclerotic plaque. Otherwise, no significant stenosis, occlusion, or aneurysm within the [place]. 2. No significant stenosis, occlusion, or dissection identified within the carotid or vertebral arteries.. 3. No acute infarct or intracranial hemorrhage. ACT 112: Negative or not required by law. Electronically signed by: Miguel Romero M.D. 05/15/2022 10:51 AM Head CTA 05/15/22 09:[address], HEAD & NECK CTA HISTORY: Headache. vision changes TECHNIQUE: Noncontrast CT images of the head were performed. Multiaxial CT images of the head were performed following the intravenous administration of contrast to evaluate the major cerebral vessels. Multiaxial CT images of the neck were also performed following the intravenous administration of contrast to evaluate the major cervical vessels. Maximum intensity projection images were also obtained. A dose lowering technique was utilized adhering to the principles of ALARA. COMPARISON: None. FINDINGS: NONCONTRAST HEAD CT: Small retention cyst within the left maxillary sinus and mild mucosal thickening within the left sphenoid sinus. The mastoid air cells are clear. The calvarium and skull base are intact. Prior bilateral lens replacement. Otherwise, the orbits are unremarkable. The ventricles and sulci are within normal limits. There is no mass, hematoma, midline shift, or acute infarct. HEAD CTA: Visualized distal vertebral arteries, and basilar artery are widely patent. 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 The major dural venous sinuses appear patent. Mild multifocal narrowing within the left carotid siphon due to the moderate calcified plaque. No significant stenosis within the right intracranial internal carotid artery which also demonstrates moderate calcified plaque. There is a hypoplastic left A1 segment. NECK CTA: The aortic arch and proximal great vessels are widely patent. There is no significant stenosis, occlusion, or dissection identified within the bilateral common carotid, internal carotid, or vertebral arteries. IMPRESSION: 1. Mild multifocal narrowing within the left carotid siphon due to the atherosclerotic plaque. Otherwise, no significant stenosis, occlusion, or aneurysm within the [place]. 2. No significant stenosis, occlusion, or dissection identified within the carotid or vertebral arteries.. 3. No acute infarct or intracranial hemorrhage. ACT 112: Negative or not required by law. Electronically signed by: Miguel Romero M.D. 05/15/2022 10:51 AM Neck CTA 05/15/22 09:[address], HEAD & NECK CTA HISTORY: Headache. vision changes TECHNIQUE: Noncontrast CT images of the head were performed. Multiaxial CT images of the head were performed following the intravenous administration of contrast to evaluate the major cerebral vessels. Multiaxial CT images of the neck were also performed following the intravenous administration of contrast to evaluate the major cervical vessels. Maximum intensity projection images were also obtained. A dose lowering technique was utilized adhering to the principles of ALARA. COMPARISON: None. FINDINGS: NONCONTRAST HEAD CT: Small retention cyst within the left maxillary sinus and mild mucosal thickening within the left sphenoid sinus. The mastoid air cells are clear. The calvarium and skull base are intact. Prior bilateral lens replacement. Otherwise, the orbits are unremarkable. The ventricles and sulci are within normal limits. There is no mass, hematoma, midline shift, or acute infarct. HEAD CTA: Visualized distal vertebral arteries, and basilar artery are widely patent. 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 The major dural venous sinuses appear patent. Mild multifocal narrowing within the left carotid siphon due to the moderate calcified plaque. No significant stenosis within the right intracranial internal carotid artery which also demonstrates moderate calcified plaque. There is a hypoplastic left A1 segment. NECK CTA: The aortic arch and proximal great vessels are widely patent. There is no significant stenosis, occlusion, or dissection identified within the bilateral common carotid, internal carotid, or vertebral arteries. IMPRESSION: 1. Mild multifocal narrowing within the left carotid siphon due to the atherosclerotic plaque. Otherwise, no significant stenosis, occlusion, or aneurysm within the [place]. 2. No significant stenosis, occlusion, or dissection identified within the carotid or vertebral arteries.. 3. No acute infarct or intracranial hemorrhage. ACT 112: Negative or not required by law. Electronically signed by: Miguel Romero M.D. 05/15/2022 10:51 AM Chest X-Ray 05/15/22 09:08 XR chest 1V portable HISTORY: L neck pain, vision changes, HTN COMPARISON: Chest 10/13/2018. FINDINGS: No pneumothorax. No pleural effusions. Bibasilar linear densities persist and favor subsegmental atelectasis or scarring. Otherwise, the lungs are clear. The heart is normal in size. There are calcifications within the aortic knob. IMPRESSION: No significant change compared to the prior study. No acute process. ACT 112: Negative or not required by law. Electronically signed by: Miguel Romero M.D. 05/15/2022 10:16 AM Supervising Physician Co-Signing Physician Notes Patient seen and examined, chart reviewed, case discussed with Yola Kwan PA-C and I agree with the assessment and plan as above except as otherwise noted Labs and images reviewed Drake is a 72-year-old male with past medical history of DM, hypertension, and cervical radiculopathy who has had 2 days of headache distinctly different from his normal cervical radiculopathy and since 10 PM 05/14/2022 has developed vertical diplopia. CRP is normal. Troponin is normal. He has not had any chest pain, shortness of breath. He has not had any past TIA/CVA events. Has not had any prior vision changes. Is keeping his left eye closed as his diplopia resolves when he covers either eye. At bedside he is nondistressed, continues to have a mild headache. Breathing is unlabored, pulse is regular. On EOM testing he does not demonstrate nystagmus or eye lag on lateral gaze, has diplopia most prominent in inferior marino and which corrects completely on superior gaze. ESR/CRP are normal. No fevers. No leukocytosis. Took aspirin and antihypertensives before arrival. Renal function is normal. CThead without acute findings, CTA with some carotid siphon plaque, mild, without severe stenosis or aneurysm otherwise normal. XR is normal. No signs of press on CT, MRI pending. Overall presents with third/fourth palsy, DDx includes CVA, MG, age-related. Discussed with neurology, will complete stroke work-up and continue aspirin. While pending MRI and stroke eval we will allow for permissive hypertension, labetalol as needed for acute pressure >220/110. If limited by bradycardia will switch to nicardipine titration. Inflammatory markers are negative, Lyme is pending.Agree with recommendations and management of chronic issues above. PG Care Time/CCT Total # of Minutes Spent Total Time Spent with Patient: Total time spent is greater than 50% in coordination of care (as documented) at patient's floor/unit and/or counseling patient: Coding Level of Care Code 32822 INT INP/OBS CARE 3MIN Diagnoses Headache R51.9 Binocular vision disorder with diplopia H53.2 HTN (hypertension) I10 Hypercholesterolemia E78.00 Type 2 diabetes mellitus with microalbuminuria E11.29; R80.9
[2022-05-15] MEDS ORDERED: LABETALOL HCL IV 5 MG/ML 20ML IV STA ×2 (14:07→16:06)
[2022-05-15] MEDS ORDERED: GLUCOSE 10 TAB/TUBE PO PRN (16:06)
[2022-05-15] MEDS ORDERED: PHARMACIST DISCHARGE MED REC CONSULT PRN (16:06)
[2022-05-15] MEDS ORDERED: DEXTROSE 50% 50 ML SYRINGE IV PRN (16:06)
[2022-05-15] MEDS ORDERED: CARBOHYDRATES FOR HYPOGLYCEMIA PO PRN (16:06)
[2022-05-15] MEDS ORDERED: GLUCOSE 40% GEL 15 GM TUBE PO PRN (16:06)
[2022-05-15] MEDS ORDERED: GLUCAGON FOR INJ 1 MG VIAL SQ PRN (16:06)
[2022-05-15] MEDS ORDERED: FAMOTIDINE 20 MG TAB PO PRN (16:06)
--- NOTE | 2022-05-15 16:15 | Magnetic Resonance Report ---
Brain MRI WITHOUT CONTRAST HISTORY: Double vision. TECHNIQUE: Multiplanar multisequence MRI of the brain was performed without the use of contrast. COMPARISON STUDY: Head CT 05/15/2022. FINDINGS: There is no mass, hematoma, midline shift, or acute infarct. The ventricles and sulci demon strate mild age-related involutional changes. A few scattered punctate foci of T2 hyperintensity seen within the periventricular and subcortical white matter are nonspecific but suggestive of mild micro vascular ischemic changes. The major vascular flow voids at the skull base are well-maintained. Prior bilateral lens replacement. Otherwise, the orbits are unremarkable. Mild mucosal thickening within t he left sphenoid sinus and a small retention cyst within the left maxillary sinus. Trace bilateral ma stoid effusions are noted. IMPRESSION: No acute infarct or intracranial hemorrhage. ACT 112: Negative or not required by law. Electronically signed by: Miguel Romero M.D. 05/15/2022 4:13 PM
[2022-05-15] MEDS ORDERED: ACETAMINOPHEN 325 MG TAB PO PRN (17:02)
[2022-05-15] MEDS ORDERED: KETOROLAC TROMETHAMINE 15 MG/ML VIAL IV ONE (17:02)
[2022-05-15] MEDS ORDERED: amLODIPine BESYLATE 5 MG TAB PO ONE (17:30)
[2022-05-15 17:40] LABS: Lyme Ab IgG w/WB Rflx Negative (Negative)
[2022-05-15 17:48] LABS: Lyme Ab IgM w/WB Rflx Equivocal (Negative)
[2022-05-15] MEDS: INSULIN ASPART PER UNIT CHARGE SC SCH ×2 (17:48→21:12)
[2022-05-15] MEDS: ATORVASTATIN 40 MG TAB PO SCH (21:12)
[2022-05-15] MEDS: carvediloL 25 MG TAB PO SCH (21:12)
[2022-05-15] MEDS: ASPIRIN 81 MG ECTAB PO SCH (21:12)
[2022-05-16 06:31] LABS: BUN Creatinine Ratio 17.1 (10-20); Chol HDL Ratio 4.6 (0-5); Creatinine Clr Calc Pharmacy 41.5 ml/min; Est GFR (African American) 54.1 ml/min; Est GFR (Non-African American) 46.7 ml/min; Potassium 4.1 mmol/L (3.5-5.1)
[2022-05-16 06:54] LABS: Basophils # (auto) 0.03 K/uL (0-0.2); Basophils % (auto) 0.4 %; Eosinophils % (auto) 2.7 %; Hematocrit (blood only) 38.6 % (42.0-52.0); Hemoglobin 13.6 g/dl (14.0-18.0); Immature Granulocytes # (auto) 0.03 K/uL (0.01-0.20); Immature Granulocytes % (auto) 0.4 %; Lymphocytes # (auto) 2.04 K/uL (1.2-3.4); Lymphocytes % (auto) 27.4 %; Mean Corpuscular Hemoglobin 30.6 pg (25.0-34.0); Mean Corpuscular Hgb Conc 35.2 g/dL (32.0-36.0); Mean Corpuscular Volume 86.9 fL (80.0-100.0); Mean Platelet Volume 10.1 fL (9.4-12.4); Monocytes % (auto) 12.1 %; Neutrophils # (auto) 4.25 K/uL (1.40-6.50); Platelet Count 168 K/uL (130-400); RDW Coefficient of Variation 12.5 % (11.5-14.5); RDW Standard Deviation 39.7 fL (36.4-46.3); Red Blood Count 4.44 M/uL (4.70-6.10); White Blood Count 7.45 K/ul (4.8-10.8)
[2022-05-16 08:16] LABS: Estimated Average Glucose 151 mg/dl; Hemoglobin A1C 6.9 % (4.5-5.6)
--- NOTE | 2022-05-16 08:54 | Hospitalist Progress Note ---
Date of Service May 16, 2022 Assessment & Plan (1) Left-sided fourth cranial nerve palsy: Plan: 72-year-old man with history of CAD, hyperlipidemia, hypertension, DM2, who presented to the ED with persistent headache and diplopia x2 days. Admitted for stroke rule out, further evaluation by neurology. Left-sided 4th cranial nerve palsy/diplopia -MRI head: No acute infarct or intracranial hemorrhage -CTA head/neck: Left carotid narrowing 2/2 atherosclerotic plaque. No significant stenosis occlusion or aneurysm in the [place] or within the carotid, vertebral arteries. No acute infarct or ICH. -Echocardiogram: EF = 60 to 65%. Normal LV systolic function. Normal RV function. Normal LA, AV, PV, MV, TV. Normal aortic root size. No evidence of pericardial effusion. -Neurology consult: Suspect left 4th nerve palsy 2/2 microvascular ischemic damage, though partial 3rd nerve palsy not completely excluded. -Also do not suspect MG, migraine, Graves' ophthalmopathy, or Lyme * Line Western blot pending * Continue daily aspirin, atorvastatin * Outpatient neurology follow-up * Follow-up with business intelligence etl developer, Dr. Cox in 1 month * Anticipate discharge tomorrow Headache -Neurology: Low suspicion for migraine. Would not recommend triptan or CGRP isai. * Continue as needed Tylenol, ibuprofen. Hypertension * Continue home Coreg, HCTZ, losartan DM2 -Patient on metformin 1500 mg daily, glipizide at home. -Hemoglobin A1c on admission 6.9%. * Basal bolus insulin: 5 units Lantus at bedtime, SQ SSI (CF 30, CR 10) Hyperlipidemia * Continue home atorvastatin Code: DNR/DNI Dispo: PCU FEN/GI: Heart healthy DVT Prophylaxis: Lovenox 40 mg q24h PT/OT: Yes Consults: None (2) Binocular vision disorder with diplopia: (3) Headache: (4) HTN (hypertension): (5) Type 2 diabetes mellitus with microalbuminuria: (6) Hypercholesterolemia: Admission and Anticipated Discharge Date Admission Date: May 15, 2022 Supervising Physician Co-Signing Physician Notes 72-year-old male with past medical history of type 2 diabetes and hypertension presenting with headache and diplopia. Patient reports symptoms have improved slightly, continues to have binocular diplopia with downward lateral gaze bilaterally. Follow-up with ophthalmology and neurology recommended. Awaiting Lyme Western blot. I personally examined the patient and verified all anderson points of history and exam, discussed case, and agree with decision making and plan documented by Dr. Mercedes. Subjective No acute events overnight. This morning, patient reports 4/10 headache globally. He reports his diplopia has improved, when staring ahead. However, diplopia persists when looking downwards especially on his left. He denies dizziness. He is able to ambulate without assistance. He remains concerned that the diplopia is not completely resolved. Otherwise, he has no complaints. Review of Systems Review of Systems: All systems reviewed & are unremarkable except as noted in HPI & below Physical Exam Physical Exam: General: No acute distress HEENT: PERRLA. Normal conjunctiva, anicteric sclera. Oropharynx normal. Respiratory: Normal respiratory effort, CTABL. Cardiovascular: RRR without murmurs, gallops, or rubs. No edema. GI: Soft abdomen with normal bowel sounds heard on auscultation. Nontender x4 quadrants Neuro: Alert and oriented x3. Results & Data Results & Data Vital Signs (Past 12 Hours) Vital Signs Temp Pulse Pulse Resp BP Pulse Ox O2 Del Method 05/16/22 08:10 36.8 C 73 19 177/74 H 94 Room Air 05/16/22 03:06 36.7 C 69 18 119/71 94 Room Air 05/16/22 00:58 77 05/15/22 23:29 37.0 C 82 19 142/72 H 92 Room Air Resident Activity Tracking Resident Involvement: Resident Care Provided Care Provided: Adult Hospital Medicine (3) Headache Headache chronicity pattern: acute headache Headache type: unspecified (4) HTN (hypertension) Hypertension type: unspecified Qualified Code(s): I10 - Essential (primary) hypertension
[2022-05-16] MEDS: hydroCHLOROthiazide 25 MG TAB PO SCH (09:42)
[2022-05-16] MEDS: CHOLECALCIFEROL 1,000 UNITS 25 MCG TAB PO SCH (09:42)
[2022-05-16] MEDS: carvediloL 25 MG TAB PO SCH ×2 (09:42→20:39)
[2022-05-16] MEDS: LOSARTAN POTASSIUM 50 MG TAB PO SCH (09:42)
[2022-05-16] MEDS: INSULIN ASPART PER UNIT CHARGE SC SCH ×4 (09:42→20:37)
--- NOTE | 2022-05-16 09:50 | Neurology Consultation ---
Date of Consultation May 16, 2022 Assessment & Plan (1) Left-sided fourth cranial nerve palsy: (2) Binocular vision disorder with diplopia: (3) Headache: Plan 72-year-old male with a 2 to 3-day history of improving vertical diplopia, worse with downgaze and head tilt to the left, improving with head tilt to the right and looking up. Also has an associated left frontal occipital headache. No evidence of hemorrhage or acute or subacute stroke on MRI. Clinically, I suspect this patient has a left 4th nerve palsy. A partial 3rd nerve palsy may not be completely excluded, however. No evidence of tumor, aneurysm, or obvious structural lesion on MRI or CT angiography of the head and neck. CTA does reveal mild atherosclerotic plaque and narrowing within the left carotid siphon that would not be responsible for his presentation. 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 Risk factors for this patient include diabetes mellitus which has been fairly well controlled with a recent hemoglobin A1c of 6.9, dyslipidemia which appears to be well controlled with an LDL of 71, and hypertension which does not appear to be well controlled in the context of this current hospitalization, and in looking back through available records for the past few years. He does not have an elevated ESR making giant cell arteritis unlikely. I do not think the equivocal positive Lyme IgM is clinically significant. Western blot is pending. Patient should continue with daily low-dose aspirin and atorvastatin. He will need ongoing management of diabetes mellitus and hypertension. Patient should follow-up with his wheat grower as well, Dr. Cox regarding his diplopia. If his diplopia persists after 3 months he may be an appropriate candidate for prisms. I do not think his clinical presentation, examination findings, are suggestive of myasthenia gravis and I have not recommended acetylcholine receptor antibodies. His presentation does not appear to be consistent with Graves' ophthalmopathy however, it would not be unreasonable to check TFTs and possibly antithyroid antibody testing if indicated. I do not have a specific recommendation for his left frontal occipital headache at this time, other than acetaminophen and or an NSAID such as ibuprofen or naproxen to be used on an as-needed basis. I do expect his headache to gradually improve on its own. I do not think his clinical presentation is consistent with migraine and I would not recommend a triptan or CGRP isai at this time. This patient should not require additional outpatient neurology follow-up. History of Present Illness Reason for Consultation: diplopia Requesting Physician: Dori Kwan PA-C Attending Physician: Carlos Waterman MD History of Present Illness The patient is a 72-year-old male with a history of type 2 diabetes mellitus, and hypertension, who presented to the emergency department yesterday with a chief complaint of vertical diplopia and associated headache that have been present for 2 days. He had noted the diplopia would worsen when looking down and he is described to vertically objects, with the superior objects slightly tilted. The diplopia would improve when looking up. No significant difference when looking to either the left or right side. No associated vision loss. The headache primarily localized to the left frontal occipital region. His symptoms have modestly improved this morning although he still reports some blurry vision when looking down. He has never had similar symptoms previously. He does have a history of chronic neck pain which he relates to cervical degenerative disc disease with occasional paresthesias to the upper limbs, sometimes worse when sleeping on his side. No known history of stroke or TIA. Denies a history of diabetic peripheral neuropathy. History notable for cataract surgery. Follows with Dr. Cox, ophthalmology. No history of diabetic retinopathy per last ophthalmology assessment from April 2021. Follows with [facility] cardiology as well, clinic note from December 2021 reviewed, history notable for CAD, status post LAD PCI, no obstructive disease, hypertension, well controlled at that time, dyslipidemia, reasonably well controlled on atorvastatin, occasional PVCs, aortic stenosis, mild gradient. Allergies Allergy/AdvReac Type Severity Reaction Status Date / Time No Known Drug Allergies Allergy Unknown . Verified 05/15/22 13:23 Home Medications Medication Instructions Recorded Confirmed Type aspirin 81 mg tablet,delayed 81 mg PO QPM 10/16/18 05/15/22 History release blood-glucose meter, drum-type #1 ea 11/22/18 01/12/22 History (Accu-Chek Compact Plus Care kit) lancets 28 gauge (FreeStyle #200 ea 01/06/20 01/12/22 Rx Lancets) cholecalciferol (vitamin D3) 50 50 mcg PO DAILY 04/09/21 05/15/22 History mcg (2,000 unit) capsule zinc acetate 25 mg (zinc) capsule 25 mg PO DAILY 04/09/21 05/15/22 History atorvastatin 40 mg tablet 40 mg PO QPM 90 days #90 tabs 05/20/21 05/15/22 Rx blood sugar diagnostic (FreeStyle #100 ea 09/15/21 01/12/22 Rx Lite Strips) carvedilol 25 mg tablet 25 mg PO BID #180 tabs 09/29/21 05/15/22 Rx losartan 100 mg tablet 100 mg PO DAILY #90 tabs 09/30/21 05/15/22 Rx tadalafil 5 mg tablet 5 mg PO DAILY #90 tabs 11/05/21 05/15/22 Rx ipratropium bromide 21 mcg (0.03 2 spray intranasal DAILY #30 mL 12/23/21 05/15/22 Rx %) nasal spray famotidine 20 mg tablet 20 mg PO BID PRN heartburn #180 02/17/22 05/15/22 Rx tabs fluticasone propionate 50 2 spray intranasal DAILY 05/15/22 05/15/22 History mcg/actuation nasal spray,suspension glipizide 5 mg tablet, extended 5 mg PO QPM 05/15/22 05/15/22 History release 24 hr hydrochlorothiazide 25 mg tablet 25 mg PO QAM 05/15/22 05/15/22 History metformin 500 mg tablet,extended 1,500 mg PO DAILY 05/15/22 05/15/22 History release 24 hr Patient History Medical History Actinic keratosis Anxiety Aortic regurgitation Mild AR/ on echo 2016 & cath 2017 Arthritis of lumbar spine CAD in [place] artery Cataract Cervical radiculopathy Degenerative disc disease CERVICAL SPINE Erectile dysfunction GERD (gastroesophageal reflux disease) Hypercholesterolemia Male erectile disorder of organic origin Nephrolithiasis Osteoarthritis Primary hypertension Rhabdomyolysis Tubular adenoma of colon (11/25/16) recheck 5 years, Dr. Stevens Type 2 diabetes mellitus with microalbuminuria White coat syndrome with hypertension Surgical History History of cardiac cath History of cataract surgery LEFT 01/22/2018. 4mg versed. no issues. History of colonoscopy (11/25/16) tubular adenoma and hyperplastic polyp removed, recheck 5 years, Dr. Stevens History of esophagogastroduodenoscopy (EGD) History of heart artery stent History of tonsillectomy Family History Father Family history of diabetes mellitus Coronary heart disease Stroke Depression Diabetes Heart disease Myocardial infarction Mother Coronary heart disease Cancer Breast cancer Other Rheumatoid arthritis Denies family history of Sudden SIDS (sudden syndrome) Ovarian cancer Prostate cancer Deep vein thrombosis Osteoporosis Dyslipidemia Cerebral aneurysm Alzheimer disease Bipolar disorder Clotting disorder Crohn's disease Dementia Kidney disease Osteoarthritis Schizophrenia Congenital kidney disease Gestational diabetes Lung cancer COPD (chronic obstructive pulmonary disease) Colorectal cancer Pulmonary embolism Lung disease Hypertension Ulcerative colitis Colonic polyp Asthma Cystic kidney disease Social History Smoking Status: Never smoker Second Hand Exposure: No; Hx Alcohol Use: No Hx Substance Use: No Preferred Language: Welsh Communication Ability: Effective Visual Impairment: Partially Limited Hearing Ability: Normal Etl [employer] Developer Required: No Beliefs That Will Affect Care: None marital status: Current Living Situation: Spouse current occupational status: retired current occupation: [employer] Feels Safe at Home: Yes Safety Concerns: Feels Safe At This Time Childhood Exposure to Second-Hand Smoke: Yes caffeine: No during the past year weight has: remained stable Dental Care, Regularly: Yes Physical Activity Frequency: 1-2 Times per Week Seatbelt Use: always Sunscreen Use: No Assistive Devices: Glasses Review of Systems Constitutional: no fever, no chills, no body aches and no fatigue Eyes: as per Subjective / HPI and + diplopia; no blind spots Ear, Nose, Mouth, Throat: + hearing loss Respiratory: no cough and no dyspnea Cardiovascular: no chest pain and no palpitations Gastrointestinal: no nausea and no vomiting Genitourinary: no dysuria or no urinary incontinence Integumentary: no rash and no lesions Neurologic: as per Subjective / HPI and + headache(s); no localized weakness and no loss of sensation Psychiatric: no depression and no anxiety Hematologic / Lymphatic: no easy bleeding and no easy bruising Exam (Neuro) Constitutional: well developed and well nourished; no acute distress Eyes: normal visual marino by confrontation, PERRL, normal accommodation and EOM intact bilaterally; no fundoscopic abnormality, no nystagmus and no papilledema Cardiovascular: Vessels: normal carotid upstroke; no carotid bruit Neurologic: Oriented to:: Person, Place and Time Memory: Short Term Intact and Remote Intact Attention: Span Intact and Concentration Intact Language: Naming Objects and Repeating Phrases Speech Fluency: negative Dysarthria Speech Aphasia: negative Aphasia Fund of Knowledge: Current Events, Past History and Vocabulary Cranial Nerves: Normal II (Visual marino full to confrontation, visual acuity normal), III, IV, (Pupils equal round reactive to light and accommodation, eye movements normal), V (Facial sensation intact), VII (There is no facial droop or weakness), VIII (Hearing intact), IX, X (Palate elevates to midline), XI (Shoulder shrug intact) and XII (Tongue protrudes to midline) Motor Strength: Normal Lower Extremities and Normal Upper Extremities; negative Pronator Drift Motor Tone: Normal Lower Extremities and Normal Upper Extremities Muscle Bulk/Involuntary Movements: No Involuntary Movements; negative Muscle Atrophy Sensation: Light Touch Intact, Pain/Temperature Intact, Vibration Intact and Proprioception Intact Coordination: Normal; negative Limited Balance, Dysdiadochokinesia, Finger-Nose Abnormal or Heel-Elise Abnormal Deep Tendon Reflexes: Rt Triceps: 2+, Lt Triceps: 2+, Rt Biceps: 2+, Lt Biceps: 2+, Rt Brachioradialis: 2+, Lt Brachioradialis: 2+, Rt Patellar: 2+, Lt Patellar: 2+, Rt Ankle: 2+ and Lt Ankle: 2+ Special Tests: negative Babinski Present Gait: Normal Station and Gait Details: Although patient's ocular motility appears grossly normal, I was able to induce some worsening and improving blurry vision/diplopia with various head positions. For example, his vertical diplopia worsens with looking down and with head tilt to the left. The diplopia would improve with head tilt to the right as well as with looking up. Pupils equal round and reactive to light and accommodation. No ptosis. No exophthalmos/proptosis. No scleral injection. Results & Data Vital Signs (Past 12 Hours) Vital Signs Temp Pulse Pulse Resp BP Pulse Ox O2 Del Method 05/16/22 08:10 36.8 C 73 19 177/74 H 94 Room Air 05/16/22 03:06 36.7 C 69 18 119/71 94 Room Air 05/16/22 00:58 77 05/15/22 23:29 37.0 C 82 19 142/72 H 92 Room Air Laboratory Results WBC 7.45, hemoglobin 13.6, hematocrit 38.6, platelet count 168, sodium 139, potassium 4.1, BUN 25, creatinine 1.46, glucose 163, hemoglobin A1c 6.9, calcium 9.0, AST 14, ALT 19, triglycerides 159, cholesterol 132, LDL 71, VLDL 32, HDL 29, Lyme screening equivocal IgM antibody, Western blot pending Diagnostic Findings CT of the head including CT angiography of the head and neck reviewed. Mild multifocal narrowing within the left carotid siphon due to atherosclerotic plaque appreciated. Otherwise, no significant stenosis, occlusion, or aneurysm within the [place] of [place] or carotid or vertebral arteries within the neck. No evidence of acute hemorrhage or obvious acute process on CT. Brain MRI negative for acute or subacute infarct as well. I did independently review all of these images and agree with the findings as described by the interpreting radiologist. There is evidence of mild age-related atrophy and mild microvascular ischemic disease on MRI. Otherwise, no areas of restricted diffusion otherwise suggest acute or subacute infarct. Specifically, no evidence of acute stroke within the midbrain or pontine tegmentum or brainstem in general. An electrocardiogram revealed a normal sinus rhythm, 69 bpm. An echocardiogram completed February 11, 2022 revealed a normal left ventricular size and systolic function, EF 65 to 70%, no regional wall motion abnormalities. Trace aortic regurgitation, no change compared to prior study in 2017, left atrium borderline dilated. Septum not well visualized. Coding Level of Care Code 06305 INT INP/OBS CARE MIN Diagnoses Left-sided fourth cranial nerve palsy H49.12 Binocular vision disorder with diplopia H53.2 Headache R51.9 Headache chronicity pattern: acute headache Headache type: unspecified (3) Headache Headache chronicity pattern: acute headache Headache type: unspecified
--- NOTE | 2022-05-16 11:49 | XCELERA ---
[id number]
[2022-05-16] MEDS ORDERED: LACTATED RINGER'S 1,000 ML IV SCH (13:45)
[2022-05-16] MEDS: ENOXAPARIN INJ 40 MG/0.4 ML SYR SQ SCH (17:52)
[2022-05-16] MEDS: ASPIRIN 81 MG ECTAB PO SCH (20:39)
[2022-05-16] MEDS: ATORVASTATIN 40 MG TAB PO SCH (20:40)
[2022-05-16] MEDS ORDERED: LANTUS PER UNIT CHARGE SQ SCH ×2 (21:00)
[2022-05-17 06:45] LABS: Basophils # (auto) 0.04 K/uL (0-0.2); Basophils % (auto) 0.6 %; Eosinophils # (auto) 0.15 K/uL (0-0.50); Eosinophils % (auto) 2.3 %; Hematocrit (blood only) 39.8 % (42.0-52.0); Hemoglobin 14.1 g/dl (14.0-18.0); Immature Granulocytes # (auto) 0.02 K/uL (0.01-0.20); Immature Granulocytes % (auto) 0.3 %; Lymphocytes # (auto) 2.18 K/uL (1.2-3.4); Mean Corpuscular Hemoglobin 30.4 pg (25.0-34.0); Mean Corpuscular Hgb Conc 35.4 g/dL (32.0-36.0); Mean Corpuscular Volume 85.8 fL (80.0-100.0); Monocytes # (auto) 0.81 K/uL (0.11-0.59); Monocytes % (auto) 12.3 %; Neutrophils # (auto) 3.41 K/uL (1.40-6.50); Neutrophils % (auto) 51.5 %; Platelet Count 168 K/uL (130-400); RDW Coefficient of Variation 12.7 % (11.5-14.5); RDW Standard Deviation 39.6 fL (36.4-46.3); Red Blood Count 4.64 M/uL (4.70-6.10); White Blood Count 6.61 K/ul (4.8-10.8)
[2022-05-17 07:02] LABS: BUN Creatinine Ratio 19.3 (10-20); Calcium 9.3 mg/dl (8.5-10.1); Creatinine Clr Calc Pharmacy 50.9 ml/min; Est GFR (African American) 69.3 ml/min; Est GFR (Non-African American) 59.8 ml/min
[2022-05-17] MEDS: ENOXAPARIN INJ 40 MG/0.4 ML SYR SQ SCH (08:39)
[2022-05-17] MEDS: hydroCHLOROthiazide 25 MG TAB PO SCH (08:40)
[2022-05-17] MEDS: carvediloL 25 MG TAB PO SCH (08:40)
[2022-05-17] MEDS: LOSARTAN POTASSIUM 50 MG TAB PO SCH (08:40)
[2022-05-17] MEDS: CHOLECALCIFEROL 1,000 UNITS 25 MCG TAB PO SCH (08:40)
[2022-05-17] MEDS: INSULIN ASPART PER UNIT CHARGE SC SCH ×2 (08:47→12:55)
[2022-05-17] MEDS ORDERED: SENNA 8.6 MG TAB PO STA (09:01)
[2022-05-17] MEDS ORDERED: SENNA 8.6 MG TAB PO SCH (09:02)
[2022-05-17 11:37] VITALS: BP 150/81; TEMP 97.7; O2SAT 95
--- NOTE | 2022-05-17 12:01 | Discharge Summary ---
Date of Service May 17, 2022 Admission HPI Per Admitting Provider Drake Kennedy is a 72 year old male with a past medical history HTN, CAD, DM Type II, Hypercholesterolemia and cervical radiculopathy who presented to ED 05/15/22 with complaints of persistent left sided Headache x2 days and now with diplopia since 10PM last night. Patient states he has history of cervical radiculopathy and at times has neck pain that will radiate to his bottom of his skull, so when his headache began on Monday it was in the left side of his head and neck and at first he attributed to his cervical problems. He states he took some Tylenol and only had minimal relief. Then last evening he noticed if he looked straight ahead his vision was "off" He thought at first it was his glasses. Then he realized if he closed one eye his vision was normal in each eye alone but he had binocular diplopia. He tells me that if he looks up in the air he has normal vision. The diplopia is only straight forward and when looking downward. He denies any injury, trauma, loss of vision, photophobia, v omiting. He states he has had mild nausea, chills and anorexia the past 2 days. He denies any fevers. He denies any skin rashes, lesions, myalgias or arthralgias. Patient tells me that his diplopia resolves with upward gaze. The diplopia continues in all other filed of visions. Patient states that he took his HTN medications this AM. BPs consistently >200 systolically while here in ED. Admission Exam Per Admitting Provider Constitutional: elevated blood pressure saturating 96% on RA, Heart rate 70s, respirations 18-20 Eyes: PERRL, conjunctivae normal, anicteric sclerae normal visual marino by confrontation and EOM intact bilaterally; no fundoscopic abnormality ENMT: external ear and nose normal, oropharynx normal Neck: trachea midline, no thyromegaly Respiratory: normal respiratory effort, lungs clear to auscultation Cardiovascular: RRR, no murmur, no edema Gastrointestinal (Abdomen): normal bowel sounds, soft, nontender, no hepatosplenomegaly Musculoskeletal: no cyanosis or clubbing, extremities motor strength 5/5 Skin: no rashes, warm and dry Neurologic: patellar DTR's 2+ bilat, sensation intact and PERRL, EOMI, accommodation nl, no face palsy, no dysarthria Cranial Nerves: PERRL, normal accommodation, EOM intact bilaterally, normal facial strength, tongue midline, normal gag reflex, normal hearing, able to rotate head bilaterally, able to elevate shoulders bilaterally, no nystagmus and symmetric palate elevation Psychiatric: A+Ox3, euthymic affect Principal Diagnosis Binocular vision disorder with diplopia Discharge Exam General: No acute distress HEENT: PERRLA. Normal conjunctiva, anicteric sclera. Oropharynx normal. Respiratory: Normal respiratory effort, CTABL. Cardiovascular: RRR without murmurs, gallops, or rubs. No edema. GI: Soft abdomen with normal bowel sounds heard on auscultation. Nontender x4 quadrants Neuro: Alert and oriented x3. Discharge Data Allergies Allergy/AdvReac Type Severity Reaction Status Date / Time No Known Drug Allergies Allergy Unknown . Verified 05/15/22 13:23 Consultations 05/15/22 12:06 ED Decision to Admit Stat 05/16/22 10:43 Consult Neurology Routine Ordered Studies 05/15/22 09:07 CT angio head w con Stat CT angio neck with con Stat CT head/brain wo con Stat 05/15/22 14:06 MR brain wo con Urgent Hospital Course (1) Left-sided fourth cranial nerve palsy: 72-year-old man with history of CAD, hyperlipidemia, hypertension, DM2, who presented to the ED with persistent headache and diplopia x2 days. Admitted for stroke rule out, further evaluation by neurology. Left-sided 4th cranial nerve palsy/diplopia -MRI head: No acute infarct or intracranial hemorrhage -CTA head/neck: Left carotid narrowing 2/2 atherosclerotic plaque. No significant stenosis occlusion or aneurysm in the [place] or within the carotid, vertebral arteries. No acute infarct or ICH. -Echocardiogram: EF = 60 to 65%. Normal LV systolic function. Normal RV function. Normal LA, AV, PV, MV, TV. Normal aortic root size. No evidence of pericardial effusion. -Neurology consult: Suspect left 4th nerve palsy 2/2 microvascular ischemic damage, though partial 3rd nerve palsy not completely excluded. -Also do not suspect MG, migraine, Graves' ophthalmopathy, or Lyme * Line Western blot pending * Continue daily aspirin, atorvastatin * Outpatient neurology follow-up * Follow-up with worksite wellness practitioner, Dr. Cox in 1 month Headache -Neurology: Low suspicion for migraine. Would not recommend triptan or CGRP isai. * Continue as needed Tylenol, ibuprofen. Hypertension * Continue home Coreg, HCTZ, losartan DM2 -Patient on metformin 1500 mg daily, glipizide at home. -Hemoglobin A1c on admission 6.9%. * Basal bolus insulin: 5 units Lantus at bedtime, SQ SSI (CF 30, CR 10) Hyperlipidemia * Continue home atorvastatin (2) Binocular vision disorder with diplopia: (3) Headache: (4) HTN (hypertension): (5) Type 2 diabetes mellitus with microalbuminuria: (6) Hypercholesterolemia: Total Time Total Time Spent Total Time Spent (In Minutes): 30 Total Time Includes: Examination of the Patient and Discharge Planning Discharge Plan Discharge Items Patient Disposition: Home - Self-Care Reason For Visit: DIPLOPIA STROKE EVAL Discharge Diagnosis: Headache, vertical diplopia Activity: Per Instructions section Non-emergency contact: Primary Care Provider and Neurologist Call non-emergency contact if: your symptoms worsen, your pain is not controlled and your pain is worsening Follow-up/Referrals: Vivian Villatoro MD [Primary Care Provider] - 05/20/22 9:00 am (Will see Jethro MELTON) Brain Cox MD [Physician] - 06/03/22 9:00 am Diet: Regular Addtl Attending Provider Instructions: Dear Drake, You were brought to the hospital because of your headache and double vision. We admitted you to the hospital in order to make sure that you did not have a stroke. We ordered some imaging, obtained lab work and reviewed the results. We also consulted a neurologist to evaluate your double vision. There was no evidence that you had a stroke. However, our neurologist was concerned about the possibility that you may have had a 4th nerve palsy. We kept you for an additional day to make sure your symptoms did not worsen, which they have not. Therefore, we feel that you are ready to be discharged home. * We did not add or remove any of your medications. Continue to take your medications as instructed, unless otherwise directed by your primary care physician. * For your headache, you may continue to take Tylenol as needed. You may take 1000 mg Tylenol every 8 hours or, if you prefer 500 mg of Tylenol every 4 hours. Follow-up appointments * You are scheduled to see your worksite wellness practitioner, Dr. Cox, on June 03 at 9:00 AM. If you are unable to make that appointment, please reach out to his clinic at [phone]. * You should call your primary care physician, Dr. Villatoro, make an appointment within the next month. You can contact her clinic at [phone] . If you begin to experience worsening double vision, or worsening headaches, please contact your primary care physician. If you are not able to get in touch with them and your symptoms persist, do not hesitate to go to the emergency room. It has been a pleasure to care for you here [facility]. If you have any questions or concerns about your care, please reach out to us at . Pending Studies at Discharge: No Stand-Alone Forms: My [facility], Smoking Cessation Medications and DC Order Prescriptions: Continued (DME) lancets [FreeStyle Lancets] 28 gauge misc See Rx Instructions .ROUTE .MEDSUPPLY Qty: 200 3RF Rx Instructions: TEST TWICE DAILY DUE TO HYPERGLYCEMIA atorvastatin 40 mg tablet 40 mg PO QPM 90 Days Qty: 90 3RF (DME) FreeStyle Lite Strips Strip See Rx Instructions .ROUTE .MEDSUPPLY Qty: 100 3RF Rx Instructions: TEST ONCE DAILY DUE TO HYPERGLYCEMIA carvedilol 25 mg tablet 25 mg PO BID Qty: 180 3RF losartan 100 mg tablet 100 mg PO DAILY Qty: 90 3RF famotidine 20 mg tablet 20 mg PO BID PRN (Reason: heartburn) Qty: 180 3RF (DME) Accu-Chek Compact Plus Care kit See Dose Instructions .ROUTE .MEDSUPPLY Qty: 1 Rx Instructions: As directed tadalafil 5 mg tablet 5 mg PO DAILY Qty: 90 3RF cholecalciferol (vitamin D3) 50 mcg (2,000 unit) capsule 50 mcg PO DAILY zinc acetate 25 mg (zinc) capsule 25 mg PO DAILY ipratropium bromide 21 mcg (0.03 %) spray,non-aerosol 2 spray intranasal DAILY Qty: 30 2RF Rx Instructions: administer into each nostril aspirin 81 mg tablet,delayed release (DR/EC) 81 mg PO QPM Patient Comments: Confirm if patient is still taking this medication. fluticasone propionate 50 mcg/actuation spray,suspension 2 spray INTRANASAL DAILY glipizide 5 mg tablet extended release 24hr 5 mg PO QPM Rx Instructions: Take w/ 500mg of of Metformin hydrochlorothiazide 25 mg tablet 25 mg PO QAM metformin 500 mg tablet extended release 24 hr 1,500 mg PO DAILY Rx Instructions: Takes 1000mg in AM; 500mg in PM ; Takes glipizide w/ PM dose Discharge Orders: Discharge Order (Routine); Ordered 05/17/22 Ordered By: Sandra Lilly/Other Patient Handouts: Managing Type 2 Diabetes Admission Data Admit Date/Time: 05/15/22 13:37 Attending Provider: Yas Ba Admit Provider: Carlos Waterman Primary Care Provider: Vivian Villatoro Other Providers: Carlos Waterman ; Main Tong Other Interventions: Discharge Summary Assessment (RN) Last Done: 05/17/22 13:04 Supervising Physician Co-Signing Physician Notes 72-year-old male with past medical history of type 2 diabetes and hypertension presenting with headache and diplopia. Patient endorses improving symptoms. He states this morning he woke up with mild binocular diplopia that improved after 30 minutes and had a constant 5 out of 10 left-sided headache. Symptoms improved within 30 minutes of awakening. Diplopia has been improved per patient, he has follow-up with ophthalmology and workers compensation claims analyst for vision therapy scheduled. We are awaiting Lyme results for Western blot. He does endorse that his mother and maternal uncle had similar blood presentations but does not recall how they were treated but does state that they have improved overall. Advised patient if he has any worsening neurologic symptoms that he should discuss this with his PCP and follow-up with neurology. Per neurology's note, patient did not require outpatient follow-up at this time. I personally examined the patient and verified all anderson points of history and exam, discussed case, and agree with decision making and plan documented by Dr. Mercedes. Yas Ba, DO Resident Activity Tracking Resident Involvement: Resident Care Provided Care Provided: Adult Hospital Medicine
[2022-05-17 13:05] VITALS: PULSE 69
[2022-05-17 14:42] LABS: 18KDIGG Band NON-REACTIVE; 23KDIGG Band NON-REACTIVE; 23KDIGM Band NON-REACTIVE; 28KDIGG Band NON-REACTIVE; 30KDIGG Band NON-REACTIVE; 39KDIGG Band NON-REACTIVE; 39KDIGM Band NON-REACTIVE; 41KDIGG Band REACTIVE; 41KDIGM Band NON-REACTIVE; 45KDIGG Band NON-REACTIVE; 58KDIGG Band NON-REACTIVE; 66KDIGG Band NON-REACTIVE; 93KDIGG Band NON-REACTIVE; Lyme Antibodies, WB IgG NEGATIVE (NEGATIVE); Lyme Antibodies, WB IgM NEGATIVE (NEGATIVE)
== END 2022-05-17 16:07 | disposition home or self-care (01) | DRG 123 ==
LOC: ED 08:39 → SUATTDRO 13:37 → 4W 13:37